=== PATIENT | female | born 1960 | race Caucasian/White ===

== ENCOUNTER 2017-12-24 21:16 | Inpatient (IN) | payer MEDICAID, OTHER ==
[2017-12-24 23:17] LABS: ADD MAN DIFF? NO
[2017-12-24 23:19] LABS: BASOPHIL # 0.1 10^3/ul (0.0-0.1); BASOPHILS % 0.8 % (0.0-2.0); EOSINOPHILS # 0.3 10^3/ul (0.0-0.5); EOSINOPHILS % 2.5 % (0.0-7.0); HEMATOCRIT 42.5 % (37.0-47.0); HEMOGLOBIN 13.9 g/dl (12.0-16.0); LYMPHOCYTES # 4.6 10^3/ul (0.8-2.9); MEAN CORPUSCULAR HEMOGLOBIN 29.6 pg (29.0-33.0); MEAN CORPUSCULAR HGB CONC 32.7 g/dl (32.0-37.0); MEAN CORPUSCULAR VOLUME 90.4 fl (82.0-101.0); MEAN PLATELET VOLUME 9.2 fl (7.4-10.4); MONOCYTE # 0.9 10^3/ul (0.3-0.9); MONOCYTES % 7.1 % (0.0-11.0); NEUTROPHIL # 6.4 10^3/ul (1.6-7.5); NEUTROPHILS % 52.3 % (39.0-77.0); PLATELET COUNT 438 10^3/UL (140-415); RED CELL DISTRIBUTION WIDTH 14.2 % (11.5-14.5)
[2017-12-24 23:19] LABS: WHITE BLOOD COUNT 12.3 10^3/ul (4.8-10.8)
[2017-12-24] MEDS: ASPIRIN 325 MG TAB PO (23:29)
[2017-12-24] MEDS: METHOCARBAMOL 750 MG TAB PO (23:29)
[2017-12-24 23:42] LABS: ANION GAP 17 (8-16); BLOOD UREA NITROGEN 18 mg/dl (7-20); CALCIUM 10.1 mg/dl (8.4-10.2); CARBON DIOXIDE 27 mmol/L (21-31); CHLORIDE 102 mmol/L (97-110); CREATININE 0.84 mg/dl (0.44-1.00); GLUCOSE 88 mg/dl (70-220); POTASSIUM 3.5 mmol/L (3.5-5.1); SODIUM 142 mmol/L (135-144)
[2017-12-24 23:54] LABS: B-TYPE NATRIURETIC PEPTIDE 25 PG/ML (0-125)
[2017-12-24 23:59] LABS: TROPONIN-I < 0.012 ng/ml (0.00-0.12)
[2017-12-25] MEDS: ONDANSETRON 4 MG INJ IV ×2 (00:23→06:37)
[2017-12-25] MEDS: SOD CHLORIDE 0.9% 1,000 ML IV ×2 (00:23→10:00)
[2017-12-25] MEDS: morphine 4 MG/ML VIAL IV (00:25)
[2017-12-25 01:59] LABS: ADD UMIC YES; UR ASCORBIC ACID NEGATIVE (NEGATIVE); UR BILIRUBIN (Dip) NEGATIVE (NEGATIVE); UR BLOOD (Dip) NEGATIVE (NEGATIVE); UR CLARITY CLEAR (CLEAR); UR COLOR STRAW (YELLOW); UR GLUCOSE (Dip) NEGATIVE (NEGATIVE); UR KETONES (Dip) NEGATIVE (NEGATIVE); UR LEUKOCYTE ESTERASE (Dip) TRACE Leu/ul (NEGATIVE); UR NITRITE (Dip) NEGATIVE (NEGATIVE); UR RBC 0 /HPF (0-5); UR SPECIFIC GRAVITY (Dip) 1.006 (1.003-1.030); UR TOTAL PROTEIN (Dip) NEGATIVE (NEGATIVE); UR UROBILINOGEN (Dip) NEGATIVE (NEGATIVE); UR WBC 4 /HPF (0-5)
[2017-12-25] MEDS: DIAZEPAM 5 MG/ML SYG IV (02:25)
[2017-12-25] MEDS: SODIUM CHLORIDE 0.9% 1L BAG IV* (04:19)
[2017-12-25] MEDS: CEFEPIME 2GM/50 ML (PMX) 50 ML IVPB (04:20)
[2017-12-25] MEDS ORDERED: ALPRAZOLAM 1 MG TAB PO ×2 (05:00→21:00)
[2017-12-25] MEDS: SOD CHLORIDE 0.9% 500 ML IV (05:00)
[2017-12-25] MEDS ORDERED: ACETAMINOPHEN 325 MG TAB PO (05:00)
[2017-12-25] MEDS ORDERED: NACL 0.9% 3 ML SYG IV (05:00)
[2017-12-25 05:41] LABS: LACTIC ACID 1.1 mmol/L (0.5-2.0)
[2017-12-25 06:18] LABS: LACTIC ACID 1.1 mmol/L (0.5-2.0)
[2017-12-25] MEDS: morphine 2 MG INJ IV ×2 (06:37→10:49)
[2017-12-25 06:38] LABS: CK-MB 0.39 ng/ml (0.0-2.4)
[2017-12-25 06:48] LABS: TROPONIN-I < 0.012 ng/ml (0.00-0.12)
[2017-12-25 06:57] LABS: CREATINE KINASE 41 IU/L (23-200)
[2017-12-25] MEDS: ALBUMIN HUMAN 5% 250 ML IV (07:00)
[2017-12-25] MEDS ORDERED: INSULIN REGULAR HUMAN SQ (08:00)
[2017-12-25] MEDS ORDERED: [UNRECOGNIZED DRUG - OTHER] SQ (08:00)
[2017-12-25 08:41] LABS: LACTIC ACID 1.1 mmol/L (0.5-2.0)
[2017-12-25] MEDS: ASPIRIN (EC) 81 MG TAB PO (09:00)
[2017-12-25] MEDS: GABAPENTIN 300 MG CAP PO (10:50)
[2017-12-25 11:28] LABS: HEMOGLOBIN A1C 11.7 % (0-5.9)
[2017-12-25] MEDS ORDERED: GLUCOSE GEL 15 GRAM TUBE PO ×2 (11:30)
[2017-12-25] MEDS ORDERED: GLUCAGON 1 MG INJ IM (11:30)
[2017-12-25] MEDS ORDERED: INSULIN GLARGINE [LANtus] 3 ML PEN SC ×2 (11:30→12:00)
[2017-12-25] MEDS ORDERED: GLUCOSE GEL 15 GRAM TUBE BUCCAL (11:30)
[2017-12-25] MEDS ORDERED: DEXTROSE 50% 50 ML SYRINGE IV ×2 (11:30)
[2017-12-25] MEDS ORDERED: INSULIN ASPART [NOVOLOG] 3 ML PEN SC ×2 (12:00)
[2017-12-25 12:07] LABS: CREATINE KINASE 36 IU/L (23-200)
[2017-12-25 12:19] LABS: CK INDEX 1.7; CK-MB 0.61 ng/ml (0.0-2.4)
[2017-12-25 12:21] LABS: TROPONIN-I < 0.012 ng/ml (0.00-0.12)
[2017-12-25] MEDS ORDERED: DIPHENHYDRAMINE 25 MG CAP PO (12:30)
[2017-12-25] MEDS ORDERED: ALBUTEROL/IPRATROPIUM (NEB) 3 ML AMP HHN ×2 (12:30→13:00)
[2017-12-25] MEDS ORDERED: NITROGLYCERIN (SL) 0.4 MG TAB SL (13:00)
[2017-12-25] MEDS ORDERED: FUROSEMIDE 40 MG INJ IV (13:30)
[2017-12-25] MEDS ORDERED: ENOXAPARIN 40 MG/0.4 ML SYG SC (13:30)
[2017-12-25] MEDS ORDERED: LEVOFLOXACIN 500MG/D5W (PMX) 100 ML IVPB (13:30)
[2017-12-25] MEDS ORDERED: NICOTINE (21 MG/24 HR) PATCH TRANSDERM (14:30)
[2017-12-25] MEDS ORDERED: morphine 2 MG INJ IV (15:00)
[2017-12-25] MEDS ORDERED: [UNRECOGNIZED DRUG - OTHER] SQ (21:00)
[2017-12-25] MEDS ORDERED: INSULIN REGULAR SQ (21:00)
[2017-12-25] MEDS ORDERED: ATORVASTATIN 40 MG TAB PO (21:00)
[2017-12-25] MEDS ORDERED: traZODone 100 MG TAB PO (21:00)
[2017-12-26] MEDS ORDERED: ACCU-CHEK XX (02:00)
[2017-12-26] MEDS ORDERED: HYDROCHLOROTHIAZIDE 25 MG TAB PO (09:00)
[2017-12-26] MEDS ORDERED: NICOTINE (21 MG/24 HR) PATCH TRANSDERM (09:00)
[2017-12-26] MEDS ORDERED: FUROSEMIDE 40 MG INJ IV (09:00)
[2017-12-26] MEDS ORDERED: ISOSORBIDE MONONITRATE 20 MG TAB PO (09:00)
== END 2017-12-25 13:24 | disposition left against medical advice (07) | DRG 313 ==
LOC: E/R 21:16 → MS4 12-25 04:11
DX: R07.9 Chest pain, unspecified (principal); E11.649 Type 2 diabetes mellitus with hypoglycemia without coma; I11.0 Hypertensive heart disease with heart failure; I50.9 Heart failure, unspecified; N39.0 Urinary tract infection, site not specified; Z68.41 Body mass index [BMI] 40.0-44.9, adult; G89.29 Other chronic pain; M54.9 Dorsalgia, unspecified; D72.829 Elevated white blood cell count, unspecified; J44.9 Chronic obstructive pulmonary disease, unspecified; E78.5 Hyperlipidemia, unspecified; F17.200 Nicotine dependence, unspecified, uncomplicated; E66.01 Morbid (severe) obesity due to excess calories; D72.819 Decreased white blood cell count, unspecified; Z79.82 Long term (current) use of aspirin; Z79.4 Long term (current) use of insulin
CPT/HCPCS: 36415; 71045; 80048; 81001; 82550; 82553; 82962; 83036; 83605; 83880; 84484; 85025; 87040; 87086; 93005; 93306; 96374; 96375; 96376; 99291-25

== ENCOUNTER 2018-02-14 21:20 | Emergency (ER) | payer OTHER, MEDICAID ==
[2018-02-14] MEDS: METHYLPREDNISOLONE 125 MG INJ IV (22:06)
[2018-02-14] MEDS: ALBUTEROL 0.083% (NEB) 2.5 MG/3 ML AMP HHN (22:09)
[2018-02-14] MEDS: IPRATROPIUM (NEB) 0.5 MG/2.5 ML AMP HHN (22:09)
[2018-02-14] MEDS: ALPRAZOLAM 1 MG TAB PO (22:16)
[2018-02-14] MEDS: CEFTRIAXONE 1 GM/50 ML (PMX) 50 ML IVPB (22:24)
[2018-02-14 22:26] LABS: ADD MAN DIFF? NO
[2018-02-14 22:30] LABS: BASOPHIL # 0.1 10^3/ul (0.0-0.1); BASOPHILS % 0.7 % (0.0-2.0); EOSINOPHILS # 0.4 10^3/ul (0.0-0.5); EOSINOPHILS % 3.4 % (0.0-7.0); HEMOGLOBIN 13.1 g/dl (12.0-16.0); LYMPHOCYTES # 3.8 10^3/ul (0.8-2.9); LYMPHOCYTES % 32.3 % (15.0-51.0); MEAN CORPUSCULAR VOLUME 90.7 fl (82.0-101.0); MEAN PLATELET VOLUME 9.7 fl (7.4-10.4); MONOCYTE # 0.7 10^3/ul (0.3-0.9); MONOCYTES % 6.3 % (0.0-11.0); NEUTROPHIL # 6.7 10^3/ul (1.6-7.5); PLATELET COUNT 415 10^3/UL (140-415); RED BLOOD COUNT 4.52 10^6/ul (4.20-5.40); RED CELL DISTRIBUTION WIDTH 13.9 % (11.5-14.5)
[2018-02-14 22:30] LABS: WHITE BLOOD COUNT 11.8 10^3/ul (4.8-10.8)
[2018-02-14 22:49] LABS: INR 0.96; PARTIAL THROMBOPLASTIN TIME 27.9 Sec (25.0-35.0); PROTIME 12.9 Sec (11.9-14.9)
[2018-02-14 22:52] LABS: ALANINE AMINOTRANSFERASE 23 IU/L (13-69); ALBUMIN/GLOBULIN RATIO 1.37; ALKALINE PHOSPHATASE 74 IU/L (42-121); ANION GAP 16 (8-16); ASPARTATE AMINO TRANSFERASE 16 IU/L (15-46); BILIRUBIN,INDIRECT 0.2 mg/dl (0-1.1); BILIRUBIN,TOTAL 0.2 mg/dl (0.2-1.3); BLOOD UREA NITROGEN 16 mg/dl (7-20); CALCIUM 9.1 mg/dl (8.4-10.2); CARBON DIOXIDE 27 mmol/L (21-31); CHLORIDE 102 mmol/L (97-110); CREATININE 0.82 mg/dl (0.44-1.00); GLUCOSE 200 mg/dl (70-220); POTASSIUM 3.9 mmol/L (3.5-5.1); SODIUM 141 mmol/L (135-144); TOTAL PROTEIN 6.9 g/dl (6.1-8.1)
[2018-02-14 23:03] LABS: B-TYPE NATRIURETIC PEPTIDE 51 PG/ML (0-125)
[2018-02-14 23:15] LABS: TROPONIN-I < 0.012 ng/ml (0.00-0.12)
== END 2018-02-15 01:25 | disposition home or self-care (01) ==
LOC: FTE 02-15 01:25
DX: J44.1 Chronic obstructive pulmonary disease with (acute) exacerbation (principal); J18.9 Pneumonia, unspecified organism; I10 Essential (primary) hypertension; I50.9 Heart failure, unspecified; E11.9 Type 2 diabetes mellitus without complications; E66.9 Obesity, unspecified; F17.210 Nicotine dependence, cigarettes, uncomplicated; Z79.4 Long term (current) use of insulin; Z79.82 Long term (current) use of aspirin
CPT/HCPCS: 36415; 71046; 80053; 83880; 84484; 85025; 85610; 85730; 93005; 94664; 96374; 96375; 99285-25

== ENCOUNTER 2018-02-22 20:43 | Emergency (ER) | payer OTHER ==
[2018-02-22 21:47] LABS: MODE ROOM AIR; MetHgb Venous 0.3 %; Sample Type Blood venous; Site VENOUS LINE; Venous COHb 4.8 %; Venous Fraction OxyHgb 86.6 %; Venous Oxygen Sat 91.3 mmHG (55.0-75.0); Venous Total Hemglobin 14.3 g/dl
[2018-02-22] MEDS: IPRATROPIUM (NEB) 0.5 MG/2.5 ML AMP INH (21:53)
[2018-02-22] MEDS: ALBUTEROL 0.083% (NEB) 2.5 MG/3 ML AMP INH (21:53)
[2018-02-22 22:12] LABS: ADD MAN DIFF? NO
[2018-02-22 22:14] LABS: WHITE BLOOD COUNT 14.6 10^3/ul (4.8-10.8)
[2018-02-22 22:14] LABS: ABNORMAL IP MESSAGE 1; BASOPHIL # 0.1 10^3/ul (0.0-0.1); BASOPHILS % 0.4 % (0.0-2.0); EOSINOPHILS # 0.4 10^3/ul (0.0-0.5); EOSINOPHILS % 2.9 % (0.0-7.0); HEMATOCRIT 40.8 % (37.0-47.0); HEMOGLOBIN 13.3 g/dl (12.0-16.0); LYMPHOCYTES % 40.8 % (15.0-51.0); MEAN CORPUSCULAR HGB CONC 32.6 g/dl (32.0-37.0); MEAN CORPUSCULAR VOLUME 88.9 fl (82.0-101.0); MEAN PLATELET VOLUME 9.7 fl (7.4-10.4); MONOCYTE # 0.9 10^3/ul (0.3-0.9); MONOCYTES % 6.3 % (0.0-11.0); NEUTROPHIL # 7.2 10^3/ul (1.6-7.5); NEUTROPHILS % 49.2 % (39.0-77.0); PLATELET COUNT 423 10^3/UL (140-415); RED BLOOD COUNT 4.59 10^6/ul (4.20-5.40); RED CELL DISTRIBUTION WIDTH 13.7 % (11.5-14.5)
[2018-02-22 22:27] LABS: POSITIVE DIFF @See below
[2018-02-22 22:36] LABS: ANION GAP 13 (8-16); BLOOD UREA NITROGEN 23 mg/dl (7-20); CALCIUM 9.3 mg/dl (8.4-10.2); CARBON DIOXIDE 30 mmol/L (21-31); CHLORIDE 101 mmol/L (97-110); CREATININE 0.95 mg/dl (0.44-1.00); GLUCOSE 199 mg/dl (70-220); POTASSIUM 3.3 mmol/L (3.5-5.1); SODIUM 141 mmol/L (135-144)
[2018-02-22] MEDS: LORAZEPAM 1 MG TAB PO (22:36)
[2018-02-22 22:47] LABS: B-TYPE NATRIURETIC PEPTIDE 62 PG/ML (0-125)
[2018-02-22 22:49] LABS: TROPONIN-I < 0.012 ng/ml (0.000-0.120)
== END 2018-02-22 23:45 | disposition home or self-care (01) ==
LOC: E/R 20:43
DX: J98.01 Acute bronchospasm (principal); R53.1 Weakness; J41.0 Simple chronic bronchitis; I50.9 Heart failure, unspecified; I10 Essential (primary) hypertension; E11.9 Type 2 diabetes mellitus without complications; E66.9 Obesity, unspecified; Z87.891 Personal history of nicotine dependence; Z79.82 Long term (current) use of aspirin; Z79.4 Long term (current) use of insulin
CPT/HCPCS: 36415; 71045; 80048; 82803; 82962; 83880; 84484; 85025; 85378; 93005; 94644; 99285-25

== ENCOUNTER 2018-03-04 21:25 | Emergency (ER) | payer OTHER ==
[2018-03-05 02:27] LABS: ADD MAN DIFF? NO
[2018-03-05] MEDS: ONDANSETRON 4 MG INJ IV (02:29)
[2018-03-05] MEDS: ASPIRIN 325 MG TAB PO (02:29)
[2018-03-05] MEDS: LIDOCAINE/MYLANTA 40 ML BTL PO (02:29)
[2018-03-05 02:30] LABS: WHITE BLOOD COUNT 12.7 10^3/ul (4.8-10.8)
[2018-03-05 02:30] LABS: BASOPHIL # 0.1 10^3/ul (0.0-0.1); BASOPHILS % 0.7 % (0.0-2.0); EOSINOPHILS # 0.4 10^3/ul (0.0-0.5); EOSINOPHILS % 2.9 % (0.0-7.0); HEMATOCRIT 44.9 % (37.0-47.0); HEMOGLOBIN 14.7 g/dl (12.0-16.0); LYMPHOCYTES # 4.3 10^3/ul (0.8-2.9); LYMPHOCYTES % 34.1 % (15.0-51.0); MEAN CORPUSCULAR HEMOGLOBIN 28.9 pg (29.0-33.0); MEAN CORPUSCULAR HGB CONC 32.7 g/dl (32.0-37.0); MEAN CORPUSCULAR VOLUME 88.4 fl (82.0-101.0); MEAN PLATELET VOLUME 10.2 fl (7.4-10.4); MONOCYTE # 0.8 10^3/ul (0.3-0.9); NEUTROPHIL # 7.1 10^3/ul (1.6-7.5); NEUTROPHILS % 56.1 % (39.0-77.0); PLATELET COUNT 365 10^3/UL (140-415); RED BLOOD COUNT 5.08 10^6/ul (4.20-5.40); RED CELL DISTRIBUTION WIDTH 13.5 % (11.5-14.5)
[2018-03-05 02:55] LABS: ANION GAP 15 (8-16); BLOOD UREA NITROGEN 22 mg/dl (7-20); CALCIUM 9.9 mg/dl (8.4-10.2); CARBON DIOXIDE 31 mmol/L (21-31); CHLORIDE 100 mmol/L (97-110); CREATININE 0.85 mg/dl (0.44-1.00); GLUCOSE 101 mg/dl (70-220); SODIUM 143 mmol/L (135-144)
[2018-03-05 03:14] LABS: B-TYPE NATRIURETIC PEPTIDE 28 PG/ML (0-125); TROPONIN-I < 0.012 ng/ml (0.000-0.120)
[2018-03-05] MEDS: KETOROLAC 30 MG INJ IV (03:35)
[2018-03-05] MEDS: POTASSIUM CHLORIDE (SR) 20 MEQ TAB PO (03:36)
[2018-03-05] MEDS: SOD CHLORIDE 0.9% 1,000 ML IV (03:36)
== END 2018-03-05 06:15 | disposition home or self-care (01) ==
LOC: E/R 21:25
DX: E87.6 Hypokalemia (principal); E66.01 Morbid (severe) obesity due to excess calories; D72.829 Elevated white blood cell count, unspecified; J44.9 Chronic obstructive pulmonary disease, unspecified; I10 Essential (primary) hypertension; I50.9 Heart failure, unspecified; E11.9 Type 2 diabetes mellitus without complications; Z79.4 Long term (current) use of insulin; Z79.82 Long term (current) use of aspirin; Z87.891 Personal history of nicotine dependence
CPT/HCPCS: 36415; 71045; 80048; 83880; 84484; 85025; 93005; 96374; 96375; 99285-25

== ENCOUNTER 2018-03-07 22:54 | Emergency (ER) | payer OTHER ==
[2018-03-07] MEDS ORDERED: LACTATED RINGER'S 1,000 ML IV (23:05)
[2018-03-07 23:17] LABS: MODE ROOM AIR; MetHgb Venous 0.1 %; Sample Type Blood venous; Site VENOUS LINE; Venous COHb 3.6 %; Venous Fraction OxyHgb 77.2 %; Venous Oxygen Sat 80.2 mmHG (55.0-75.0); Venous Total Hemglobin 14.3 g/dl
[2018-03-07] MEDS ORDERED: morphine (ER) 30 MG TAB PO (23:30)
[2018-03-07] MEDS: HYDROCODONE/APAP (10/325) TAB PO (23:34)
[2018-03-07] MEDS: SOD CHLORIDE 0.9% 1,000 ML IV (23:34)
[2018-03-07 23:38] LABS: ADD MAN DIFF? NO
[2018-03-07 23:41] LABS: BASOPHIL # 0.1 10^3/ul (0.0-0.1); BASOPHILS % 0.7 % (0.0-2.0); EOSINOPHILS # 0.3 10^3/ul (0.0-0.5); HEMATOCRIT 40.8 % (37.0-47.0); HEMOGLOBIN 13.1 g/dl (12.0-16.0); LYMPHOCYTES # 3.1 10^3/ul (0.8-2.9); LYMPHOCYTES % 36.5 % (15.0-51.0); MEAN CORPUSCULAR HEMOGLOBIN 29.1 pg (29.0-33.0); MEAN CORPUSCULAR HGB CONC 32.1 g/dl (32.0-37.0); MEAN CORPUSCULAR VOLUME 90.7 fl (82.0-101.0); MEAN PLATELET VOLUME 10.5 fl (7.4-10.4); MONOCYTE # 0.7 10^3/ul (0.3-0.9); MONOCYTES % 8.3 % (0.0-11.0); NEUTROPHIL # 4.3 10^3/ul (1.6-7.5); NEUTROPHILS % 50.3 % (39.0-77.0); PLATELET COUNT 303 10^3/UL (140-415); RED CELL DISTRIBUTION WIDTH 13.9 % (11.5-14.5)
[2018-03-07 23:41] LABS: WHITE BLOOD COUNT 8.5 10^3/ul (4.8-10.8)
[2018-03-07 23:50] LABS: ADD UMIC YES; UR ASCORBIC ACID NEGATIVE (NEGATIVE); UR BACTERIA FEW /HPF (NONE SEEN); UR BILIRUBIN (Dip) NEGATIVE (NEGATIVE); UR BLOOD (Dip) NEGATIVE (NEGATIVE); UR CLARITY CLEAR (CLEAR); UR COLOR STRAW (YELLOW); UR GLUCOSE (Dip) 3+ mg/dL (NEGATIVE); UR KETONES (Dip) NEGATIVE (NEGATIVE); UR LEUKOCYTE ESTERASE (Dip) TRACE Leu/ul (NEGATIVE); UR NITRITE (Dip) NEGATIVE (NEGATIVE); UR RBC 1 /HPF (0-5); UR SPECIFIC GRAVITY (Dip) 1.024 (1.003-1.030); UR TOTAL PROTEIN (Dip) NEGATIVE (NEGATIVE); UR UROBILINOGEN (Dip) NEGATIVE (NEGATIVE); UR WBC 3 /HPF (0-5)
[2018-03-08] LABS: ANION GAP 14 (8-16); BLOOD UREA NITROGEN 13 mg/dl (7-20); CALCIUM 9.1 mg/dl (8.4-10.2); CARBON DIOXIDE 27 mmol/L (21-31); CHLORIDE 102 mmol/L (97-110); CREATININE 0.71 mg/dl (0.44-1.00); POTASSIUM 3.9 mmol/L (3.5-5.1); SODIUM 139 mmol/L (135-144)
[2018-03-08 00:02] LABS: GLUCOSE 587 mg/dl (70-220)
[2018-03-08 00:12] LABS: TROPONIN-I < 0.012 ng/ml (0.000-0.120)
[2018-03-08 01:20] LABS: LACTIC ACID 3.1 mmol/L (0.5-2.0)
== END 2018-03-08 02:15 | disposition home or self-care (01) ==
LOC: E/R 03-08 02:15
DX: E11.65 Type 2 diabetes mellitus with hyperglycemia (principal); G89.29 Other chronic pain; M79.604 Pain in right leg; M79.605 Pain in left leg; J44.9 Chronic obstructive pulmonary disease, unspecified; I10 Essential (primary) hypertension; I50.9 Heart failure, unspecified; E66.9 Obesity, unspecified; Z68.30 Body mass index [BMI] 30.0-30.9, adult; Z87.891 Personal history of nicotine dependence; Z79.4 Long term (current) use of insulin; Z79.82 Long term (current) use of aspirin
CPT/HCPCS: 36415; 80048; 81001; 82803; 82962; 83605; 84484; 85025; 99284-25

== ENCOUNTER 2018-04-05 18:22 | Emergency (ER) | payer OTHER ==
[2018-04-05] MEDS: LACTATED RINGER'S 1,000 ML IV (20:02)
[2018-04-05] MEDS: ONDANSETRON 4 MG INJ IV (20:02)
[2018-04-05] MEDS: morphine 4 MG/ML VIAL IV (20:02)
[2018-04-05 20:08] LABS: ADD UMIC NO; UR ASCORBIC ACID NEGATIVE (NEGATIVE); UR BILIRUBIN (Dip) NEGATIVE (NEGATIVE); UR BLOOD (Dip) NEGATIVE (NEGATIVE); UR CLARITY CLEAR (CLEAR); UR COLOR YELLOW (YELLOW); UR GLUCOSE (Dip) 1+ mg/dL (NEGATIVE); UR KETONES (Dip) NEGATIVE (NEGATIVE); UR LEUKOCYTE ESTERASE (Dip) NEGATIVE Leu/ul (NEGATIVE); UR NITRITE (Dip) NEGATIVE (NEGATIVE); UR SPECIFIC GRAVITY (Dip) 1.017 (1.003-1.030); UR TOTAL PROTEIN (Dip) NEGATIVE (NEGATIVE); UR UROBILINOGEN (Dip) NEGATIVE (NEGATIVE)
[2018-04-05 20:13] LABS: HEMATOCRIT 43.7 % (37.0-47.0); HEMOGLOBIN 14.2 g/dl (12.0-16.0); MEAN CORPUSCULAR HEMOGLOBIN 29.1 pg (29.0-33.0); MEAN CORPUSCULAR HGB CONC 32.5 g/dl (32.0-37.0); MEAN CORPUSCULAR VOLUME 89.5 fl (82.0-101.0); MEAN PLATELET VOLUME 9.9 fl (7.4-10.4); PLATELET COUNT 414 10^3/UL (140-415); RED BLOOD COUNT 4.88 10^6/ul (4.20-5.40); RED CELL DISTRIBUTION WIDTH 14.9 % (11.5-14.5)
[2018-04-05 20:13] LABS: WHITE BLOOD COUNT 13.3 10^3/ul (4.8-10.8)
[2018-04-05 20:18] LABS: ADD MAN DIFF? YES; POSITIVE DIFF @See below
[2018-04-05 20:20] LABS: ALANINE AMINOTRANSFERASE 32 IU/L (13-69); ALBUMIN 4.2 g/dl (3.3-4.9); ALKALINE PHOSPHATASE 98 IU/L (42-121); ANION GAP 18 (8-16); ASPARTATE AMINO TRANSFERASE 15 IU/L (15-46); BILIRUBIN,INDIRECT 0.1 mg/dl (0-1.1); BILIRUBIN,TOTAL 0.1 mg/dl (0.2-1.3); BLOOD UREA NITROGEN 13 mg/dl (7-20); CALCIUM 9.7 mg/dl (8.4-10.2); CARBON DIOXIDE 28 mmol/L (21-31); CHLORIDE 97 mmol/L (97-110); CREATININE 0.76 mg/dl (0.44-1.00); GLUCOSE 230 mg/dl (70-220); POTASSIUM 4.2 mmol/L (3.5-5.1); SODIUM 139 mmol/L (135-144)
[2018-04-05 20:29] LABS: B-TYPE NATRIURETIC PEPTIDE 61 PG/ML (0-125)
[2018-04-05 20:33] LABS: TROPONIN-I < 0.012 ng/ml (0.000-0.120)
[2018-04-05] MEDS: KETOROLAC 30 MG INJ IV (21:31)
[2018-04-05] MEDS: OXYCODONE/ACETAMINOPHEN (5/325) TAB PO (23:37)
== END 2018-04-05 23:40 | disposition home or self-care (01) ==
LOC: E/R 18:22
DX: K80.50 Calculus of bile duct without cholangitis or cholecystitis without obstruction (principal); E11.9 Type 2 diabetes mellitus without complications; D72.829 Elevated white blood cell count, unspecified; J44.9 Chronic obstructive pulmonary disease, unspecified; I50.9 Heart failure, unspecified; E66.9 Obesity, unspecified; Z68.41 Body mass index [BMI] 40.0-44.9, adult; Z87.891 Personal history of nicotine dependence; Z79.4 Long term (current) use of insulin; Z79.82 Long term (current) use of aspirin
CPT/HCPCS: 71045; 74019; 76705; 80053; 81003; 83880; 84484; 85025; 93005; 96374; 96375; 99285-25

== ENCOUNTER 2018-04-16 12:16 | Observation (INO) | payer OTHER ==
[2018-04-16] MEDS: traZODone 100 MG TAB PO (02:13)
[2018-04-16] MEDS ORDERED: NITROGLYCERIN (SL) 0.4 MG TAB SL (14:30)
[2018-04-16 14:57] LABS: WHITE BLOOD COUNT 15.1 10^3/ul (4.8-10.8)
[2018-04-16 14:57] LABS: ADD MAN DIFF? NO; BASOPHIL # 0.1 10^3/ul (0.0-0.1); BASOPHILS % 0.7 % (0.0-2.0); EOSINOPHILS # 0.5 10^3/ul (0.0-0.5); EOSINOPHILS % 3.1 % (0.0-7.0); HEMATOCRIT 45.2 % (37.0-47.0); HEMOGLOBIN 14.3 g/dl (12.0-16.0); LYMPHOCYTES # 4.1 10^3/ul (0.8-2.9); MEAN CORPUSCULAR HEMOGLOBIN 28.7 pg (29.0-33.0); MEAN CORPUSCULAR HGB CONC 31.6 g/dl (32.0-37.0); MEAN CORPUSCULAR VOLUME 90.8 fl (82.0-101.0); MEAN PLATELET VOLUME 10.1 fl (7.4-10.4); MONOCYTES % 6.3 % (0.0-11.0); NEUTROPHIL # 9.4 10^3/ul (1.6-7.5); NEUTROPHILS % 62.6 % (39.0-77.0); PLATELET COUNT 334 10^3/UL (140-415); RED BLOOD COUNT 4.98 10^6/ul (4.20-5.40)
[2018-04-16] MEDS: NITROGLYCERIN 2% 1 GM OINT PKT TD (15:01)
[2018-04-16] MEDS: ASPIRIN 81 MG TAB PO (15:02)
[2018-04-16] MEDS: morphine 4 MG/ML VIAL IV (15:04)
[2018-04-16] MEDS: ONDANSETRON 4 MG INJ IV (15:04)
[2018-04-16 15:24] LABS: ANION GAP 16 (8-16); BLOOD UREA NITROGEN 14 mg/dl (7-20); CALCIUM 9.6 mg/dl (8.4-10.2); CARBON DIOXIDE 26 mmol/L (21-31); CHLORIDE 100 mmol/L (97-110); CREATININE 0.76 mg/dl (0.44-1.00); GLUCOSE 302 mg/dl (70-220); POTASSIUM 4.1 mmol/L (3.5-5.1); SODIUM 138 mmol/L (135-144)
[2018-04-16 15:36] LABS: TROPONIN-I < 0.010 ng/ml (0.000-0.120)
[2018-04-16 17:39] LABS: ALANINE AMINOTRANSFERASE 36 IU/L (13-69); ALKALINE PHOSPHATASE 101 IU/L (42-121); ASPARTATE AMINO TRANSFERASE 34 IU/L (15-46); BILIRUBIN,INDIRECT 0.4 mg/dl (0-1.1); BILIRUBIN,TOTAL 0.4 mg/dl (0.2-1.3); LIPASE 35 U/L (23-300); TOTAL PROTEIN 6.5 g/dl (6.1-8.1)
[2018-04-16] MEDS: KETOROLAC 30 MG INJ IV (17:59)
[2018-04-16] MEDS: FUROSEMIDE 40 MG INJ IV (17:59)
[2018-04-16] MEDS ORDERED: ACETAMINOPHEN 325 MG TAB PO ×2 (18:00)
[2018-04-16] MEDS ORDERED: ONDANSETRON 4 MG INJ IV (18:00)
[2018-04-16] MEDS ORDERED: NACL 0.9% 3 ML SYG IV (18:00)
[2018-04-16] MEDS ORDERED: ONDANSETRON 4 MG TAB PO (18:00)
[2018-04-16] MEDS ORDERED: GLUCAGON 1 MG INJ IM (19:30)
[2018-04-16] MEDS ORDERED: DEXTROSE 50% 50 ML SYRINGE IV ×2 (19:30)
[2018-04-16] MEDS ORDERED: GLUCOSE GEL 15 GRAM TUBE BUCCAL (19:30)
[2018-04-16] MEDS ORDERED: GLUCOSE GEL 15 GRAM TUBE PO ×2 (19:30)
[2018-04-16] MEDS ORDERED: ALBUTEROL 0.083% (NEB) 2.5 MG/3 ML AMP NEB (20:00)
[2018-04-16] MEDS: FAMOTIDINE 20 MG TAB PO (21:02)
[2018-04-16] MEDS: HYDROCODONE/APAP (10/325) TAB PO (21:02)
[2018-04-16] MEDS: ALPRAZOLAM 1 MG TAB PO (21:02)
[2018-04-16 21:45] LABS: CREATINE KINASE 29 IU/L (23-200)
[2018-04-16 21:56] LABS: CK INDEX 1.6; CK-MB 0.45 ng/ml (0.0-2.4); TROPONIN-I < 0.010 ng/ml (0.000-0.120)
[2018-04-16] MEDS: morphine (ER) 30 MG TAB PO (23:00)
[2018-04-16] MEDS: ARFORMOTEROL TARTRATE 15MCG/2 ML AMP INH (23:00)
[2018-04-16] MEDS: BUDESONIDE (NEB) 0.5MG/2ML AMP INH (23:00)
[2018-04-17] MEDS: ATORVASTATIN 40 MG TAB PO (00:43)
[2018-04-17] MEDS: GABAPENTIN 300 MG CAP PO ×3 (00:44→12:04)
[2018-04-17] MEDS: ACCU-CHEK XX (02:00)
[2018-04-17] MEDS: INSULIN ASPART [NOVOLOG] 3 ML PEN SC ×5 (02:06→12:00)
[2018-04-17] MEDS: INSULIN GLARGINE [LANTus] (100 UNITS/ML) SYG SC (02:09)
[2018-04-17 02:56] LABS: CREATINE KINASE 25 IU/L (23-200)
[2018-04-17 03:09] LABS: CK INDEX 1.6; CK-MB 0.39 ng/ml (0.0-2.4); TROPONIN-I < 0.010 ng/ml (0.000-0.120)
[2018-04-17 07:36] LABS: ADD MAN DIFF? NO
[2018-04-17 07:41] LABS: BASOPHIL # 0.1 10^3/ul (0.0-0.1); BASOPHILS % 0.7 % (0.0-2.0); EOSINOPHILS # 0.5 10^3/ul (0.0-0.5); EOSINOPHILS % 5.6 % (0.0-7.0); HEMATOCRIT 43.1 % (37.0-47.0); HEMOGLOBIN 13.5 g/dl (12.0-16.0); LYMPHOCYTES # 2.9 10^3/ul (0.8-2.9); MEAN CORPUSCULAR HEMOGLOBIN 28.4 pg (29.0-33.0); MEAN CORPUSCULAR HGB CONC 31.3 g/dl (32.0-37.0); MEAN CORPUSCULAR VOLUME 90.7 fl (82.0-101.0); MEAN PLATELET VOLUME 10.1 fl (7.4-10.4); MONOCYTE # 0.6 10^3/ul (0.3-0.9); MONOCYTES % 7.5 % (0.0-11.0); NEUTROPHIL # 4.4 10^3/ul (1.6-7.5); PLATELET COUNT 304 10^3/UL (140-415); RED BLOOD COUNT 4.75 10^6/ul (4.20-5.40); RED CELL DISTRIBUTION WIDTH 14.9 % (11.5-14.5)
[2018-04-17 07:41] LABS: WHITE BLOOD COUNT 8.4 10^3/ul (4.8-10.8)
[2018-04-17] MEDS: BUDESONIDE (NEB) 0.5MG/2ML AMP INH (08:00)
[2018-04-17 08:27] LABS: ANION GAP 13 (8-16); BLOOD UREA NITROGEN 21 mg/dl (7-20); CALCIUM 9.1 mg/dl (8.4-10.2); CARBON DIOXIDE 31 mmol/L (21-31); CHLORIDE 99 mmol/L (97-110); CHOL/HDL RATIO 3.2 RATIO; CHOLESTEROL 100 mg/dl (100-200); GLUCOSE 328 mg/dl (70-220); HDL CHOLESTEROL 31 mg/dl (37-92); LDL CHOLESTEROL,CALCULATED 18 mg/dl; MAGNESIUM 1.6 mg/dl (1.7-2.5); SODIUM 139 mmol/L (135-144); TRIGLYCERIDES 256 mg/dl (0-149)
[2018-04-17 08:29] LABS: HEMOGLOBIN A1C 9.6 % (0-5.9)
[2018-04-17] MEDS: morphine (ER) 30 MG TAB PO (08:39)
[2018-04-17] MEDS: ISOSORBIDE MONONITRATE(SR)60 MG TAB PO (08:39)
[2018-04-17] MEDS: FUROSEMIDE 40 MG TAB PO (08:40)
[2018-04-17] MEDS: FAMOTIDINE 20 MG TAB PO (08:40)
[2018-04-17] MEDS: ASPIRIN 81 MG TAB PO (08:40)
[2018-04-17] MEDS: HYDROCHLOROTHIAZIDE 25 MG TAB PO (08:40)
[2018-04-17] MEDS: ENOXAPARIN 40 MG/0.4 ML SYG SC (08:41)
[2018-04-17] MEDS: ARFORMOTEROL TARTRATE 15MCG/2 ML AMP INH (08:48)
[2018-04-17] MEDS: TIOTROPIUM 18 MCG CAPSULE INHA DEV INH (10:42)
[2018-04-17] MEDS: REGADENOSON 0.4 MG/5 ML SYG (13:56)
[2018-04-17] MEDS: ALPRAZOLAM 0.25 MG TAB PO (15:20)
== END 2018-04-17 17:13 | disposition home or self-care (01) ==
LOC: E/R 12:16 → MS4 17:46
PROVIDERS: Internal Medicine
DX: R07.89 Other chest pain (principal); K80.20 Calculus of gallbladder without cholecystitis without obstruction; I25.10 Atherosclerotic heart disease of native coronary artery without angina pectoris; I50.9 Heart failure, unspecified; J44.9 Chronic obstructive pulmonary disease, unspecified; Z79.82 Long term (current) use of aspirin; Z79.84 Long term (current) use of oral hypoglycemic drugs; Z79.4 Long term (current) use of insulin
CPT/HCPCS: 36415; 71045; 74176; 78452; 80048; 80061; 80076; 82550; 82553; 82962; 83036; 83690; 83735; 84484; 85025; 93005; 93017; 96374; 96375; 99285-25; G0378

== ENCOUNTER 2018-05-13 21:05 | Emergency (ER) | payer OTHER ==
[2018-05-14] MEDS: ONDANSETRON 4 MG INJ IV ×2 (00:11→02:32)
[2018-05-14] MEDS: HYDROmorphONE 1 MG/ML SYG IV ×2 (00:11→02:32)
[2018-05-14] MEDS: FUROSEMIDE 40 MG INJ IV (00:12)
[2018-05-14 00:17] LABS: WHITE BLOOD COUNT 12.3 10^3/ul (4.8-10.8)
[2018-05-14 00:17] LABS: HEMATOCRIT 45.4 % (37.0-47.0); HEMOGLOBIN 14.6 g/dl (12.0-16.0); MEAN CORPUSCULAR HEMOGLOBIN 29.2 pg (29.0-33.0); MEAN CORPUSCULAR HGB CONC 32.2 g/dl (32.0-37.0); MEAN CORPUSCULAR VOLUME 90.8 fl (82.0-101.0); MEAN PLATELET VOLUME 9.7 fl (7.4-10.4); PLATELET COUNT 338 10^3/UL (140-415); RED CELL DISTRIBUTION WIDTH 15.2 % (11.5-14.5)
[2018-05-14 00:31] LABS: ADD MAN DIFF? YES; POSITIVE DIFF @See below
[2018-05-14 00:34] LABS: ALANINE AMINOTRANSFERASE 34 IU/L (13-69); ALBUMIN 4.6 g/dl (3.3-4.9); ALBUMIN/GLOBULIN RATIO 1.64; ALKALINE PHOSPHATASE 71 IU/L (42-121); ANION GAP 16 (8-16); ASPARTATE AMINO TRANSFERASE 24 IU/L (15-46); BILIRUBIN,INDIRECT 0.1 mg/dl (0-1.1); BILIRUBIN,TOTAL 0.1 mg/dl (0.2-1.3); BLOOD UREA NITROGEN 17 mg/dl (7-20); CARBON DIOXIDE 28 mmol/L (21-31); CHLORIDE 99 mmol/L (97-110); GLUCOSE 104 mg/dl (70-220); POTASSIUM 3.5 mmol/L (3.5-5.1); SODIUM 139 mmol/L (135-144); TOTAL PROTEIN 7.4 g/dl (6.1-8.1)
[2018-05-14 00:46] LABS: B-TYPE NATRIURETIC PEPTIDE 54 PG/ML (0-125); TROPONIN-I < 0.010 ng/ml (0.000-0.120)
[2018-05-14 01:33] LABS: ANISOCYTOSIS 2+ (0-0); BAND NEUTROPHILS #M 0.1 10^3/ul (0.0-0.6); BAND NEUTROPHILS % (M) 1 % (0-4); BASOPHIL #M 0.1 10^3/ul (0.0-0.0); BASOPHILS % (M) 1 % (0-2); EOSINOPHILS % (M) 2 % (0-7); LYMPHOCYTES #M 3.6 10^3/ul (0.8-2.9); LYMPHOCYTES % (M) 30 % (15-51); MICROCYTOSIS 2+ (0-0); MONOCYTE #M 0.2 10^3/ul (0.3-0.9); MONOCYTES % (M) 2 % (0-11); PLATELET ESTIMATE NORMAL; POLYCHROMASIA 3+ (0-0); REACTIVE LYMPHOCYTES #M 0.7 10^3/ul (0.0-0.0); REACTIVE LYMPHOCYTES% (M) 6 % (0-0); SEG NEUT #M 7.1 10^3/ul (1.6-7.5); SEGMENTED NEUTROPHILS (M) % 58 % (39-77); SMUDGE%M 9 % (0-0)
== END 2018-05-14 02:37 | disposition home or self-care (01) ==
LOC: E/R 21:05
DX: R60.0 Localized edema (principal); I10 Essential (primary) hypertension; I50.9 Heart failure, unspecified; E66.9 Obesity, unspecified; F17.210 Nicotine dependence, cigarettes, uncomplicated; J44.9 Chronic obstructive pulmonary disease, unspecified; E11.9 Type 2 diabetes mellitus without complications; Z79.4 Long term (current) use of insulin; Z79.82 Long term (current) use of aspirin
CPT/HCPCS: 71045; 80053; 83880; 84484; 85025; 93005; 96374; 96375; 96376; 99285-25

== ENCOUNTER 2018-05-19 19:27 | Inpatient (IN) | payer OTHER ==
[2018-05-19 21:48] LABS: ADD MAN DIFF? NO; BASOPHIL # 0.1 10^3/ul (0.0-0.1); BASOPHILS % 0.6 % (0.0-2.0); EOSINOPHILS # 0.4 10^3/ul (0.0-0.5); EOSINOPHILS % 2.9 % (0.0-7.0); HEMATOCRIT 43.8 % (37.0-47.0); HEMOGLOBIN 14.4 g/dl (12.0-16.0); IMMATURE GRANS #M 0.04 10^3/ul; IMMATURE GRANS % (M) 0.3 %; LYMPHOCYTES # 3.7 10^3/ul (0.8-2.9); LYMPHOCYTES % 29.8 % (15.0-51.0); MEAN CORPUSCULAR HEMOGLOBIN 29.3 pg (29.0-33.0); MEAN CORPUSCULAR HGB CONC 32.9 g/dl (32.0-37.0); MEAN CORPUSCULAR VOLUME 89.2 fl (82.0-101.0); MEAN PLATELET VOLUME 9.7 fl (7.4-10.4); MONOCYTE # 0.9 10^3/ul (0.3-0.9); MONOCYTES % 7.2 % (0.0-11.0); NEUTROPHIL # 7.4 10^3/ul (1.6-7.5); NEUTROPHILS % 59.2 % (39.0-77.0); PLATELET COUNT 327 10^3/UL (140-415); RED BLOOD COUNT 4.91 10^6/ul (4.20-5.40); RED CELL DISTRIBUTION WIDTH 14.6 % (11.5-14.5)
[2018-05-19 21:48] LABS: WHITE BLOOD COUNT 12.6 10^3/ul (4.8-10.8)
[2018-05-19] MEDS: SOD CHLORIDE 0.9% 1,000 ML IV (21:50)
[2018-05-19] MEDS: ONDANSETRON 4 MG INJ IV (21:50)
[2018-05-19] MEDS: morphine 2 MG INJ IV (21:50)
[2018-05-19 22:23] LABS: ALANINE AMINOTRANSFERASE 26 IU/L (13-69); ALBUMIN 3.9 g/dl (3.3-4.9); ALBUMIN/GLOBULIN RATIO 1.44; ALKALINE PHOSPHATASE 87 IU/L (42-121); ANION GAP 17 (8-16); ASPARTATE AMINO TRANSFERASE 16 IU/L (15-46); BILIRUBIN,INDIRECT 0.1 mg/dl (0-1.1); BILIRUBIN,TOTAL 0.1 mg/dl (0.2-1.3); BLOOD UREA NITROGEN 17 mg/dl (7-20); CALCIUM 9.7 mg/dl (8.4-10.2); CARBON DIOXIDE 24 mmol/L (21-31); CHLORIDE 103 mmol/L (97-110); CREATININE 0.72 mg/dl (0.44-1.00); GLUCOSE 218 mg/dl (70-220); LIPASE 135 U/L (23-300); POTASSIUM 3.6 mmol/L (3.5-5.1); SODIUM 140 mmol/L (135-144); TOTAL PROTEIN 6.6 g/dl (6.1-8.1)
[2018-05-19] MEDS: HYDROmorphONE 1 MG/ML SYG IV (22:53)
[2018-05-20] MEDS: HYDROmorphONE 2 MG/ML SYG IV (01:06)
[2018-05-20] MEDS ORDERED: ONDANSETRON 4 MG INJ IV (04:30)
[2018-05-20] MEDS ORDERED: NACL 0.9% 3 ML SYG IV (04:30)
[2018-05-20] MEDS ORDERED: ALBUTEROL/IPRATROPIUM (NEB) 3 ML AMP HHN (04:30)
[2018-05-20] MEDS: DEXTROSE 5%-0.45% NACL 1,000 ML IV ×2 (04:33→14:14)
[2018-05-20] MEDS: PIPER-TAZO 3.375 GM IV (PMX) 100 ML IVPB ×2 (04:49→12:00)
[2018-05-20 05:56] LABS: ADD MAN DIFF? NO
[2018-05-20] MEDS ORDERED: GLUCOSE GEL 15 GRAM TUBE PO ×2 (06:00)
[2018-05-20] MEDS ORDERED: DEXTROSE 50% 50 ML SYRINGE IV ×2 (06:00)
[2018-05-20] MEDS ORDERED: GLUCOSE GEL 15 GRAM TUBE BUCCAL (06:00)
[2018-05-20] MEDS ORDERED: GLUCAGON 1 MG INJ IM (06:00)
[2018-05-20 06:06] LABS: BASOPHIL # 0.1 10^3/ul (0.0-0.1); BASOPHILS % 0.7 % (0.0-2.0); EOSINOPHILS # 0.4 10^3/ul (0.0-0.5); EOSINOPHILS % 3.8 % (0.0-7.0); HEMATOCRIT 42.2 % (37.0-47.0); HEMOGLOBIN 13.4 g/dl (12.0-16.0); IMMATURE GRANS #M 0.04 10^3/ul; IMMATURE GRANS % (M) 0.4 %; LYMPHOCYTES # 3.4 10^3/ul (0.8-2.9); LYMPHOCYTES % 33.3 % (15.0-51.0); MEAN CORPUSCULAR HEMOGLOBIN 28.6 pg (29.0-33.0); MEAN CORPUSCULAR HGB CONC 31.8 g/dl (32.0-37.0); MEAN CORPUSCULAR VOLUME 90.2 fl (82.0-101.0); MONOCYTE # 0.9 10^3/ul (0.3-0.9); MONOCYTES % 8.7 % (0.0-11.0); NEUTROPHIL # 5.4 10^3/ul (1.6-7.5); NEUTROPHILS % 53.1 % (39.0-77.0); PLATELET COUNT 304 10^3/UL (140-415); RED BLOOD COUNT 4.68 10^6/ul (4.20-5.40); RED CELL DISTRIBUTION WIDTH 14.9 % (11.5-14.5)
[2018-05-20 06:06] LABS: WHITE BLOOD COUNT 10.1 10^3/ul (4.8-10.8)
[2018-05-20 06:41] LABS: ALANINE AMINOTRANSFERASE 29 IU/L (13-69); ALBUMIN 3.4 g/dl (3.3-4.9); ALBUMIN/GLOBULIN RATIO 1.36; ALKALINE PHOSPHATASE 72 IU/L (42-121); ANION GAP 12 (8-16); ASPARTATE AMINO TRANSFERASE 15 IU/L (15-46); BILIRUBIN,INDIRECT 0.1 mg/dl (0-1.1); BILIRUBIN,TOTAL 0.1 mg/dl (0.2-1.3); BLOOD UREA NITROGEN 13 mg/dl (7-20); CARBON DIOXIDE 26 mmol/L (21-31); CHLORIDE 106 mmol/L (97-110); CREATININE 0.66 mg/dl (0.44-1.00); GLUCOSE 158 mg/dl (70-220); POTASSIUM 3.7 mmol/L (3.5-5.1); SODIUM 140 mmol/L (135-144); TOTAL PROTEIN 5.9 g/dl (6.1-8.1)
[2018-05-20] MEDS: INSULIN ASPART [NOVOLOG] 3 ML PEN SC ×2 (08:50→13:40)
[2018-05-20] MEDS: morphine 2 MG INJ IV ×3 (08:51→16:20)
[2018-05-20] MEDS: LORAZEPAM 2 MG INJ IV (14:14)
[2018-05-20] MEDS ORDERED: ALBUTEROL 0.083% (NEB) 2.5 MG/3 ML AMP NEB (16:00)
[2018-05-20] MEDS ORDERED: ALPRAZOLAM 1 MG TAB PO (16:00)
[2018-05-20] MEDS ORDERED: PAROXETINE 20 MG TAB PO (16:00)
[2018-05-20] MEDS ORDERED: TIOTROPIUM 18 MCG CAPSULE INHA DEV INH (17:00)
[2018-05-20] MEDS ORDERED: ACCU-CHEK XX (17:25)
[2018-05-20] MEDS ORDERED: metFORMIN 500 MG TAB PO (17:55)
[2018-05-20] MEDS ORDERED: INSULIN ASPART [NOVOLOG] 3 ML PEN SC (17:55)
[2018-05-20] MEDS ORDERED: FAMOTIDINE 20 MG TAB PO (21:00)
[2018-05-20] MEDS ORDERED: GABAPENTIN 300 MG CAP PO (21:00)
[2018-05-20] MEDS ORDERED: NYSTATIN 15 GM CR TOP (21:00)
[2018-05-20] MEDS ORDERED: ATORVASTATIN 40 MG TAB PO (21:00)
[2018-05-20] MEDS ORDERED: morphine (ER) 30 MG TAB PO (21:00)
[2018-05-20] MEDS ORDERED: traZODone 100 MG TAB PO (21:00)
[2018-05-21] MEDS ORDERED: ACCU-CHEK XX (02:00)
[2018-05-21] MEDS ORDERED: HYDROCHLOROTHIAZIDE 25 MG TAB PO (09:00)
[2018-05-21] MEDS ORDERED: FUROSEMIDE 20 MG TAB PO (09:00)
[2018-05-21] MEDS ORDERED: ASPIRIN 81 MG TAB PO (09:00)
== END 2018-05-20 17:15 | disposition home or self-care (01) | DRG 392 ==
LOC: E/R 19:27 → MS1 05-20 01:02
PROVIDERS: Internal Medicine
DX: R10.11 Right upper quadrant pain (principal); Z68.41 Body mass index [BMI] 40.0-44.9, adult; K80.20 Calculus of gallbladder without cholecystitis without obstruction; I11.0 Hypertensive heart disease with heart failure; I50.9 Heart failure, unspecified; E11.40 Type 2 diabetes mellitus with diabetic neuropathy, unspecified; J44.9 Chronic obstructive pulmonary disease, unspecified; G89.4 Chronic pain syndrome; E66.9 Obesity, unspecified; F17.210 Nicotine dependence, cigarettes, uncomplicated; Z79.82 Long term (current) use of aspirin; Z79.4 Long term (current) use of insulin
CPT/HCPCS: 36415; 76705; 78226; 80053; 82962; 83690; 85025; 96374; 96375; 99285-25

== ENCOUNTER 2018-06-22 19:52 | Inpatient (IN) | payer OTHER ==
[2018-06-22] MEDS: SOD CHLORIDE 0.9% 500 ML IV (22:01)
[2018-06-22 22:31] LABS: WHITE BLOOD COUNT 15.8 10^3/ul (4.8-10.8)
[2018-06-22 22:31] LABS: HEMATOCRIT 44.8 % (37.0-47.0); HEMOGLOBIN 14.8 g/dl (12.0-16.0); MEAN CORPUSCULAR HEMOGLOBIN 29.1 pg (29.0-33.0); PLATELET COUNT 358 10^3/UL (140-415); RED BLOOD COUNT 5.09 10^6/ul (4.20-5.40); RED CELL DISTRIBUTION WIDTH 13.7 % (11.5-14.5)
[2018-06-22 22:34] LABS: ADD MAN DIFF? YES; POSITIVE DIFF @See below
[2018-06-22 22:46] LABS: ALANINE AMINOTRANSFERASE 31 IU/L (13-69); ALBUMIN 4.2 g/dl (3.3-4.9); ALBUMIN/GLOBULIN RATIO 1.31; ALKALINE PHOSPHATASE 95 IU/L (42-121); ANION GAP 16 (8-16); ASPARTATE AMINO TRANSFERASE 21 IU/L (15-46); BILIRUBIN,INDIRECT 0.3 mg/dl (0-1.1); BILIRUBIN,TOTAL 0.3 mg/dl (0.2-1.3); BLOOD UREA NITROGEN 18 mg/dl (7-20); CALCIUM 10.1 mg/dl (8.4-10.2); CARBON DIOXIDE 29 mmol/L (21-31); CHLORIDE 97 mmol/L (97-110); CREATININE 0.77 mg/dl (0.44-1.00); GLUCOSE 120 mg/dl (70-220); LIPASE 89 U/L (23-300); POTASSIUM 3.7 mmol/L (3.5-5.1); SODIUM 138 mmol/L (135-144); TOTAL PROTEIN 7.4 g/dl (6.1-8.1)
[2018-06-22 22:47] LABS: INR 0.93; PARTIAL THROMBOPLASTIN TIME 21.8 Sec (25.0-35.0); PROTIME 12.5 Sec (11.9-14.9)
[2018-06-22 22:58] LABS: B-TYPE NATRIURETIC PEPTIDE 36 PG/ML (0-125); TROPONIN-I < 0.012 ng/ml (0.000-0.120)
[2018-06-22] MEDS: morphine 4 MG/ML VIAL IV (23:17)
[2018-06-22] MEDS: ONDANSETRON 4 MG INJ IV (23:17)
[2018-06-23 00:48] LABS: ANISOCYTOSIS 1+ (0-0); EOSINOPHILS % (M) 4 % (0-7); LYMPHOCYTES #M 4.7 10^3/ul (0.8-2.9); LYMPHOCYTES % (M) 30 % (15-51); METAMYELOCYTES #M 0.1 10^3/ul (0.0-0.0); METAMYELOCYTES %M 1 % (0-0); MICROCYTOSIS 1+ (0-0); MONOCYTE #M 1.4 10^3/ul (0.3-0.9); MONOCYTES % (M) 9 % (0-11); MYELOCYTES #M 0.1 10^3/ul (0.0-0.0); MYELOCYTES % (M) 1 % (0-0); PLATELET ESTIMATE NORMAL; REACTIVE LYMPHOCYTES #M 0.1 10^3/ul (0.0-0.0); REACTIVE LYMPHOCYTES% (M) 1 % (0-0); SEGMENTED NEUTROPHILS (M) % 54 % (39-77); SMUDGE%M 13 % (0-0)
[2018-06-23] MEDS: HYDROmorphONE 1 MG/ML SYG IV (00:48)
[2018-06-23] MEDS: PIPER-TAZO 3.375 GM IV (PMX) 100 ML IVPB (00:48)
[2018-06-23] MEDS ORDERED: ACETAMINOPHEN 325 MG TAB PO (03:00)
[2018-06-23] MEDS ORDERED: VANCOMYCIN IV PER PHARMACY XX (03:00)
[2018-06-23] MEDS ORDERED: ALBUTEROL 0.083% (NEB) 2.5 MG/3 ML AMP NEB (03:00)
[2018-06-23] MEDS ORDERED: BISACODYL (EC) 5 MG TAB PO (03:00)
[2018-06-23] MEDS ORDERED: NACL 0.9% 3 ML SYG IV (03:00)
[2018-06-23] MEDS ORDERED: DOCUSATE SODIUM 100 MG CAP PO (03:00)
[2018-06-23] MEDS: morphine (ER) 30 MG TAB PO ×3 (03:40→20:30)
[2018-06-23] MEDS: morphine 2 MG INJ IV ×5 (03:40→20:30)
[2018-06-23] MEDS: ONDANSETRON 4 MG INJ IV ×2 (03:53→21:23)
[2018-06-23] MEDS ORDERED: GLUCAGON 1 MG INJ IM (05:30)
[2018-06-23] MEDS ORDERED: GLUCOSE GEL 15 GRAM TUBE BUCCAL (05:30)
[2018-06-23] MEDS ORDERED: DEXTROSE 50% 50 ML SYRINGE IV ×2 (05:30)
[2018-06-23] MEDS ORDERED: GLUCOSE GEL 15 GRAM TUBE PO ×2 (05:30)
[2018-06-23] MEDS: VANCOMYCIN 2 GM in SOD CHLORIDE 0.9% 500 ML IVPB ×2 (05:48→17:06)
[2018-06-23] MEDS: KETOCONAZOLE 2% 15 GM CR TOP ×3 (06:00→20:33)
[2018-06-23 06:15] LABS: CREATINE KINASE 25 IU/L (23-200)
[2018-06-23 06:16] LABS: C-REACTIVE PROTEIN 0.6 mg/dl (0.0-0.9)
[2018-06-23 06:23] LABS: CK INDEX 1.6; TROPONIN-I < 0.012 ng/ml (0.000-0.120)
[2018-06-23 06:35] LABS: HEMOGLOBIN A1C 10.5 % (0-5.9)
[2018-06-23 07:46] LABS: ERYTHROCYTE SEDIMENTATION RATE 12 mm/Hr (0-30)
[2018-06-23] MEDS: ASPIRIN 81 MG TAB PO (08:09)
[2018-06-23] MEDS: GABAPENTIN 300 MG CAP PO ×3 (08:09→20:29)
[2018-06-23] MEDS: ISOSORBIDE MONONITRATE(SR)60 MG TAB PO (08:10)
[2018-06-23] MEDS: FUROSEMIDE 40 MG TAB PO (08:10)
[2018-06-23] MEDS: HYDROCHLOROTHIAZIDE 25 MG TAB PO (08:11)
[2018-06-23] MEDS: FAMOTIDINE 20 MG TAB PO ×2 (08:11→20:29)
[2018-06-23] MEDS: PAROXETINE 20 MG TAB PO (08:11)
[2018-06-23] MEDS: FLUTICASONE/VILANTEROL 200-25 INH DEVICE INH (08:12)
[2018-06-23] MEDS: TIOTROPIUM 18 MCG CAPSULE INHA DEV INH (08:12)
[2018-06-23] MEDS: INSULIN ASPART [NOVOLOG] 3 ML PEN SC ×6 (08:20→21:28)
[2018-06-23] MEDS: ENOXAPARIN 40 MG/0.4 ML SYG SC (08:21)
[2018-06-23] MEDS ORDERED: NYSTATIN 15 GM CR TOP (09:00)
[2018-06-23 09:20] LABS: CREATINE KINASE 24 IU/L (23-200)
[2018-06-23 09:33] LABS: CK INDEX 1.8; CK-MB 0.43 ng/ml (0.0-2.4); TROPONIN-I < 0.012 ng/ml (0.000-0.120)
[2018-06-23 10:11] LABS: ADD UMIC YES; UR ASCORBIC ACID NEGATIVE (NEGATIVE); UR BACTERIA FEW /HPF (NONE SEEN); UR BILIRUBIN (Dip) NEGATIVE (NEGATIVE); UR BLOOD (Dip) NEGATIVE (NEGATIVE); UR CLARITY CLEAR (CLEAR); UR COLOR YELLOW (YELLOW); UR GLUCOSE (Dip) NEGATIVE (NEGATIVE); UR KETONES (Dip) NEGATIVE (NEGATIVE); UR LEUKOCYTE ESTERASE (Dip) TRACE Leu/ul (NEGATIVE); UR MUCUS FEW /HPF (NONE SEEN); UR NITRITE (Dip) NEGATIVE (NEGATIVE); UR RBC 0 /HPF (0-5); UR SPECIFIC GRAVITY (Dip) 1.008 (1.003-1.030); UR SQUAMOUS EPITHELIAL CELL FEW /HPF (FEW); UR TOTAL PROTEIN (Dip) NEGATIVE (NEGATIVE); UR UROBILINOGEN (Dip) NEGATIVE (NEGATIVE); UR WBC 3 /HPF (0-5)
[2018-06-23] MEDS: traZODone 100 MG TAB PO (20:29)
[2018-06-23] MEDS: ATORVASTATIN 40 MG TAB PO (20:29)
[2018-06-23] MEDS: LACTOBACILLUS RHAMNOSUS CAP PO (20:29)
[2018-06-23] MEDS: INSULIN GLARGINE [LANTus] (100 UNITS/ML) SYG SC (21:20)
[2018-06-24] MEDS: morphine 2 MG INJ IV ×5 (00:37→18:13)
[2018-06-24] MEDS: ONDANSETRON 4 MG INJ IV ×5 (01:03→18:13)
[2018-06-24] MEDS: ACCU-CHEK XX ×3 (02:07→20:41)
[2018-06-24] MEDS: INSULIN ASPART [NOVOLOG] 3 ML PEN SC ×7 (02:34→20:37)
[2018-06-24 05:21] LABS: ADD MAN DIFF? NO
[2018-06-24 05:29] LABS: BASOPHIL # 0.1 10^3/ul (0.0-0.1); BASOPHILS % 0.6 % (0.0-2.0); EOSINOPHILS # 0.5 10^3/ul (0.0-0.5); EOSINOPHILS % 5.1 % (0.0-7.0); HEMATOCRIT 42.8 % (37.0-47.0); HEMOGLOBIN 13.6 g/dl (12.0-16.0); LYMPHOCYTES # 2.6 10^3/ul (0.8-2.9); LYMPHOCYTES % 29.1 % (15.0-51.0); MEAN CORPUSCULAR HEMOGLOBIN 29.4 pg (29.0-33.0); MEAN CORPUSCULAR HGB CONC 31.8 g/dl (32.0-37.0); MEAN CORPUSCULAR VOLUME 92.4 fl (82.0-101.0); MEAN PLATELET VOLUME 10.1 fl (7.4-10.4); MONOCYTE # 0.6 10^3/ul (0.3-0.9); MONOCYTES % 6.9 % (0.0-11.0); NEUTROPHIL # 5.2 10^3/ul (1.6-7.5); PLATELET COUNT 301 10^3/UL (140-415); RED BLOOD COUNT 4.63 10^6/ul (4.20-5.40); RED CELL DISTRIBUTION WIDTH 13.7 % (11.5-14.5)
[2018-06-24 05:50] LABS: ALANINE AMINOTRANSFERASE 32 IU/L (13-69); ALBUMIN 3.6 g/dl (3.3-4.9); ALBUMIN/GLOBULIN RATIO 1.33; ALKALINE PHOSPHATASE 105 IU/L (42-121); ANION GAP 16 (8-16); ASPARTATE AMINO TRANSFERASE 16 IU/L (15-46); BILIRUBIN,INDIRECT 0.2 mg/dl (0-1.1); BILIRUBIN,TOTAL 0.2 mg/dl (0.2-1.3); BLOOD UREA NITROGEN 19 mg/dl (7-20); CALCIUM 9.3 mg/dl (8.4-10.2); CARBON DIOXIDE 32 mmol/L (21-31); CHLORIDE 96 mmol/L (97-110); CREATININE 0.77 mg/dl (0.44-1.00); MAGNESIUM 1.7 mg/dl (1.7-2.5); SODIUM 140 mmol/L (135-144); TOTAL PROTEIN 6.3 g/dl (6.1-8.1)
[2018-06-24 06:06] LABS: GLUCOSE 407 mg/dl (70-220)
[2018-06-24] MEDS: VANCOMYCIN 2 GM in SOD CHLORIDE 0.9% 500 ML IVPB ×2 (06:41→18:13)
[2018-06-24] MEDS: ALPRAZOLAM 1 MG TAB PO ×2 (06:49→23:25)
[2018-06-24] MEDS: GABAPENTIN 300 MG CAP PO ×3 (08:33→20:33)
[2018-06-24] MEDS: ASPIRIN 81 MG TAB PO (08:33)
[2018-06-24] MEDS: PAROXETINE 20 MG TAB PO (08:33)
[2018-06-24] MEDS: FAMOTIDINE 20 MG TAB PO ×2 (08:34→20:35)
[2018-06-24] MEDS: morphine (ER) 30 MG TAB PO ×2 (08:34→20:34)
[2018-06-24] MEDS: ISOSORBIDE MONONITRATE(SR)60 MG TAB PO (08:34)
[2018-06-24] MEDS: FUROSEMIDE 40 MG TAB PO (08:34)
[2018-06-24] MEDS: TIOTROPIUM 18 MCG CAPSULE INHA DEV INH (08:35)
[2018-06-24] MEDS: LACTOBACILLUS RHAMNOSUS CAP PO ×2 (08:36→20:33)
[2018-06-24] MEDS: FLUTICASONE/VILANTEROL 200-25 INH DEVICE INH (08:36)
[2018-06-24] MEDS: NICOTINE (14 MG/24 HR) PATCH TRANSDERM (08:38)
[2018-06-24] MEDS: KETOCONAZOLE 2% 15 GM CR TOP ×2 (08:39→20:40)
[2018-06-24] MEDS: ENOXAPARIN 40 MG/0.4 ML SYG SC (08:45)
[2018-06-24] MEDS: INSULIN GLARGINE [LANTus] (100 UNITS/ML) SYG SC ×2 (10:11→20:40)
[2018-06-24] MEDS: LINAGLIPTIN 5 MG TABLET PO (12:24)
[2018-06-24] MEDS: HYDROCODONE/APAP (10/325) TAB PO ×2 (12:24→20:58)
[2018-06-24 17:31] LABS: VANCOMYCIN,TROUGH 17.5 ug/ml (10.0-20.0)
[2018-06-24] MEDS: ATORVASTATIN 40 MG TAB PO (20:34)
[2018-06-24] MEDS: traZODone 100 MG TAB PO (20:34)
[2018-06-24] MEDS: morphine LIQ (10 MG/5 ML) CUP PO (23:25)
[2018-06-25] MEDS: ACCU-CHEK XX ×4 (02:00→17:30)
[2018-06-25] MEDS: INSULIN ASPART [NOVOLOG] 3 ML PEN SC ×7 (02:30→17:57)
[2018-06-25] MEDS: INSULIN REGULAR, HUMAN 100 UNIT/1 ML 3ML VIAL IV (04:40)
[2018-06-25] MEDS: morphine LIQ (10 MG/5 ML) CUP PO ×3 (05:37→16:38)
[2018-06-25] MEDS: VANCOMYCIN 1.75 GM in SOD CHLORIDE 0.9% 500 ML IVPB ×2 (05:39→18:00)
[2018-06-25] MEDS: ISOSORBIDE MONONITRATE(SR)60 MG TAB PO (08:34)
[2018-06-25] MEDS: TIOTROPIUM 18 MCG CAPSULE INHA DEV INH (08:34)
[2018-06-25] MEDS: FLUTICASONE/VILANTEROL 200-25 INH DEVICE INH (08:34)
[2018-06-25] MEDS: PAROXETINE 20 MG TAB PO (08:35)
[2018-06-25] MEDS: NICOTINE (14 MG/24 HR) PATCH TRANSDERM (08:35)
[2018-06-25] MEDS: GABAPENTIN 300 MG CAP PO ×2 (08:36→13:02)
[2018-06-25] MEDS: FUROSEMIDE 40 MG TAB PO (08:36)
[2018-06-25] MEDS: ASPIRIN 81 MG TAB PO (08:36)
[2018-06-25] MEDS: FAMOTIDINE 20 MG TAB PO (08:36)
[2018-06-25] MEDS: LACTOBACILLUS RHAMNOSUS CAP PO (08:36)
[2018-06-25] MEDS: LINAGLIPTIN 5 MG TABLET PO (08:37)
[2018-06-25] MEDS: morphine (ER) 30 MG TAB PO (08:37)
[2018-06-25] MEDS: KETOCONAZOLE 2% 15 GM CR TOP (08:38)
[2018-06-25] MEDS: ENOXAPARIN 40 MG/0.4 ML SYG SC (09:54)
[2018-06-25] MEDS: ALPRAZOLAM 1 MG TAB PO (10:47)
[2018-06-25] MEDS: HYDROCODONE/APAP (10/325) TAB PO (17:43)
[2018-06-25] MEDS ORDERED: INSULIN GLARGINE [LANTus] (100 UNITS/ML) SYG SC ×2 (20:00)
[2018-06-25] MEDS ORDERED: SENNA/DOCUSATE NA (8.6MG/50MG) TAB PO (21:00)
[2018-06-25] MEDS ORDERED: MICONAZOLE 200 MG VAG SUPP VAG (21:00)
[2018-06-26] MEDS ORDERED: FAMOTIDINE 20 MG TAB PO (09:00)
== END 2018-06-25 19:55 | DRG 603 ==
LOC: E/R 19:52 → 6WM 06-23 02:24
DX: L03.311 Cellulitis of abdominal wall (principal); Z68.41 Body mass index [BMI] 40.0-44.9, adult; I50.32 Chronic diastolic (congestive) heart failure; E66.01 Morbid (severe) obesity due to excess calories; Z71.3 Dietary counseling and surveillance; R62.7 Adult failure to thrive; E11.8 Type 2 diabetes mellitus with unspecified complications; R07.89 Other chest pain; F17.200 Nicotine dependence, unspecified, uncomplicated; J44.9 Chronic obstructive pulmonary disease, unspecified; I11.0 Hypertensive heart disease with heart failure; E78.5 Hyperlipidemia, unspecified; M48.00 Spinal stenosis, site unspecified
CPT/HCPCS: 71045; 72100; 80053; 80202; 81001; 82550; 82553; 82962; 83036; 83605; 83690; 83735; 83880; 84443; 84484; 85025; 85610; 85651; 85730; 86140; 87040; 93005; 97161; G0378

== ENCOUNTER 2018-07-06 13:35 | Emergency (ER) | payer OTHER ==
[2018-07-06] MEDS: ONDANSETRON 4 MG INJ IV (15:35)
[2018-07-06] MEDS: SOD CHLORIDE 0.9% 1,000 ML IV ×2 (15:35→17:02)
[2018-07-06 15:48] LABS: ADD UMIC NO; UR ASCORBIC ACID NEGATIVE (NEGATIVE); UR BILIRUBIN (Dip) NEGATIVE (NEGATIVE); UR BLOOD (Dip) NEGATIVE (NEGATIVE); UR CLARITY CLEAR (CLEAR); UR COLOR STRAW (YELLOW); UR GLUCOSE (Dip) 3+ mg/dL (NEGATIVE); UR KETONES (Dip) NEGATIVE (NEGATIVE); UR LEUKOCYTE ESTERASE (Dip) NEGATIVE Leu/ul (NEGATIVE); UR NITRITE (Dip) NEGATIVE (NEGATIVE); UR SPECIFIC GRAVITY (Dip) 1.032 (1.003-1.030); UR TOTAL PROTEIN (Dip) NEGATIVE (NEGATIVE); UR UROBILINOGEN (Dip) NEGATIVE (NEGATIVE)
[2018-07-06 15:57] LABS: ADD MAN DIFF? NO
[2018-07-06 16:02] LABS: WHITE BLOOD COUNT 12.1 10^3/ul (4.8-10.8)
[2018-07-06 16:02] LABS: BASOPHIL # 0.1 10^3/ul (0.0-0.1); BASOPHILS % 0.5 % (0.0-2.0); EOSINOPHILS # 0.4 10^3/ul (0.0-0.5); HEMATOCRIT 43.2 % (37.0-47.0); HEMOGLOBIN 14.3 g/dl (12.0-16.0); LYMPHOCYTES # 2.7 10^3/ul (0.8-2.9); LYMPHOCYTES % 22.2 % (15.0-51.0); MEAN CORPUSCULAR HEMOGLOBIN 29.2 pg (29.0-33.0); MEAN CORPUSCULAR HGB CONC 33.1 g/dl (32.0-37.0); MEAN CORPUSCULAR VOLUME 88.3 fl (82.0-101.0); MEAN PLATELET VOLUME 9.9 fl (7.4-10.4); MONOCYTE # 1.1 10^3/ul (0.3-0.9); MONOCYTES % 8.7 % (0.0-11.0); NEUTROPHIL # 7.9 10^3/ul (1.6-7.5); NEUTROPHILS % 65.3 % (39.0-77.0); PLATELET COUNT 359 10^3/UL (140-415); RED BLOOD COUNT 4.89 10^6/ul (4.20-5.40); RED CELL DISTRIBUTION WIDTH 13.4 % (11.5-14.5)
[2018-07-06] MEDS: LIDOCAINE/MYLANTA 40 ML BTL PO (16:14)
[2018-07-06] MEDS: FAMOTIDINE 20 MG INJ IV (16:14)
[2018-07-06 16:24] LABS: ALANINE AMINOTRANSFERASE 21 IU/L (13-69); ALBUMIN/GLOBULIN RATIO 1.48; ALKALINE PHOSPHATASE 111 IU/L (42-121); ANION GAP 16 (8-16); ASPARTATE AMINO TRANSFERASE 17 IU/L (15-46); BILIRUBIN,INDIRECT 0.3 mg/dl (0-1.1); BILIRUBIN,TOTAL 0.3 mg/dl (0.2-1.3); BLOOD UREA NITROGEN 12 mg/dl (7-20); CALCIUM 9.7 mg/dl (8.4-10.2); CARBON DIOXIDE 27 mmol/L (21-31); CHLORIDE 94 mmol/L (97-110); CREATININE 0.79 mg/dl (0.44-1.00); LIPASE 179 U/L (23-300); POTASSIUM 4.1 mmol/L (3.5-5.1); SODIUM 133 mmol/L (135-144); TOTAL PROTEIN 6.7 g/dl (6.1-8.1)
[2018-07-06 16:30] LABS: GLUCOSE 463 mg/dl (70-220)
[2018-07-06] MEDS: KETOROLAC 15 MG INJ IV (16:30)
[2018-07-06] MEDS: ACETAMINOPHEN 325 MG TAB PO (16:32)
[2018-07-06] MEDS: INSULIN REGULAR, HUMAN 100 UNIT/1 ML 3ML VIAL SC (17:04)
== END 2018-07-06 17:46 | disposition home or self-care (01) ==
LOC: E/R 13:35
DX: E11.65 Type 2 diabetes mellitus with hyperglycemia (principal); D72.829 Elevated white blood cell count, unspecified; I50.9 Heart failure, unspecified; R11.2 Nausea with vomiting, unspecified; R10.9 Unspecified abdominal pain; J44.9 Chronic obstructive pulmonary disease, unspecified; I11.0 Hypertensive heart disease with heart failure; F17.210 Nicotine dependence, cigarettes, uncomplicated; E66.9 Obesity, unspecified; Z91.14 Patient's other noncompliance with medication regimen; Z79.82 Long term (current) use of aspirin; Z79.4 Long term (current) use of insulin
CPT/HCPCS: 71045; 80053; 81003; 82962; 83690; 85025; 96372; 96374; 96375; 99284-25

== ENCOUNTER 2018-07-23 09:50 | Inpatient (IN) | payer OTHER ==
[2018-07-23] MEDS: LORAZEPAM 2 MG INJ IV (10:50)
[2018-07-23 10:54] LABS: ADD MAN DIFF? NO
[2018-07-23 11:05] LABS: WHITE BLOOD COUNT 10.5 10^3/ul (4.8-10.8)
[2018-07-23 11:05] LABS: BASOPHIL # 0.1 10^3/ul (0.0-0.1); BASOPHILS % 0.7 % (0.0-2.0); EOSINOPHILS # 0.2 10^3/ul (0.0-0.5); EOSINOPHILS % 1.4 % (0.0-7.0); HEMATOCRIT 43.2 % (37.0-47.0); HEMOGLOBIN 13.8 g/dl (12.0-16.0); LYMPHOCYTES # 1.4 10^3/ul (0.8-2.9); LYMPHOCYTES % 13.6 % (15.0-51.0); MEAN CORPUSCULAR HEMOGLOBIN 28.7 pg (29.0-33.0); MEAN CORPUSCULAR HGB CONC 31.9 g/dl (32.0-37.0); MEAN CORPUSCULAR VOLUME 89.8 fl (82.0-101.0); MEAN PLATELET VOLUME 9.7 fl (7.4-10.4); MONOCYTE # 0.3 10^3/ul (0.3-0.9); NEUTROPHIL # 8.5 10^3/ul (1.6-7.5); NEUTROPHILS % 80.9 % (39.0-77.0); PLATELET COUNT 402 10^3/UL (140-415); RED BLOOD COUNT 4.81 10^6/ul (4.20-5.40); RED CELL DISTRIBUTION WIDTH 13.6 % (11.5-14.5)
[2018-07-23] MEDS: SOD CHLORIDE 0.9% 1,000 ML IV (11:08)
[2018-07-23 11:18] LABS: ALANINE AMINOTRANSFERASE 35 IU/L (13-69); ALBUMIN 4.1 g/dl (3.3-4.9); ALBUMIN/GLOBULIN RATIO 1.51; ALKALINE PHOSPHATASE 84 IU/L (42-121); ANION GAP 14 (5-13); ASPARTATE AMINO TRANSFERASE 17 IU/L (15-46); BILIRUBIN,INDIRECT 0.4 mg/dl (0-1.1); BILIRUBIN,TOTAL 0.4 mg/dl (0.2-1.3); BLOOD UREA NITROGEN 15 mg/dl (7-20); CALCIUM 9.3 mg/dl (8.4-10.2); CARBON DIOXIDE 23 mmol/L (21-31); CHLORIDE 100 mmol/L (97-110); CREATINE KINASE 34 IU/L (23-200); CREATININE 0.69 mg/dl (0.44-1.00); GLUCOSE 379 mg/dl (70-220); POTASSIUM 4.4 mmol/L (3.5-5.1); SODIUM 137 mmol/L (135-144); TOTAL PROTEIN 6.8 g/dl (6.1-8.1)
[2018-07-23 11:21] LABS: INR 0.94; PARTIAL THROMBOPLASTIN TIME 27.7 Sec (23.0-35.0); PROTIME 12.7 Sec (11.9-14.9)
[2018-07-23] MEDS ORDERED: morphine 4 MG/ML VIAL IV (11:28)
[2018-07-23 11:30] LABS: B-TYPE NATRIURETIC PEPTIDE 64 PG/ML (0-125); CK INDEX 2.1; TROPONIN-I < 0.012 ng/ml (0.000-0.120)
[2018-07-23] MEDS: ALBUTEROL 0.083% (NEB) 2.5 MG/3 ML AMP NEB (11:56)
[2018-07-23] MEDS: IPRATROPIUM (NEB) 0.5 MG/2.5 ML AMP NEB (11:56)
[2018-07-23] MEDS ORDERED: ACETAMINOPHEN 325 MG TAB PO (12:00)
[2018-07-23] MEDS ORDERED: ONDANSETRON 4 MG INJ IV (12:00)
[2018-07-23] MEDS: FUROSEMIDE 40 MG INJ IV (12:08)
[2018-07-23] MEDS: ONDANSETRON 4 MG INJ IV ×2 (12:08→16:28)
[2018-07-23] MEDS: HYDROmorphONE 2 MG/ML SYG IV (12:08)
[2018-07-23] MEDS ORDERED: HYDROCODONE/APAP (7.5/325) TAB PO (15:00)
[2018-07-23 15:59] LABS: ADD UMIC NO; UR ASCORBIC ACID NEGATIVE (NEGATIVE); UR BILIRUBIN (Dip) NEGATIVE (NEGATIVE); UR BLOOD (Dip) NEGATIVE (NEGATIVE); UR CLARITY CLEAR (CLEAR); UR COLOR COLORLESS (YELLOW); UR GLUCOSE (Dip) 3+ mg/dL (NEGATIVE); UR KETONES (Dip) NEGATIVE (NEGATIVE); UR LEUKOCYTE ESTERASE (Dip) NEGATIVE Leu/ul (NEGATIVE); UR NITRITE (Dip) NEGATIVE (NEGATIVE); UR SPECIFIC GRAVITY (Dip) 1.011 (1.003-1.030); UR TOTAL PROTEIN (Dip) NEGATIVE (NEGATIVE); UR UROBILINOGEN (Dip) NEGATIVE (NEGATIVE)
[2018-07-23 16:11] LABS: AMPHETAMINE/METHAMPHETAMINE Negative (NEGATIVE); BARBITURATES Negative (NEGATIVE); BENZODIAZEPINES Negative (NEGATIVE); CANNABINOIDS Negative (NEGATIVE); COCAINE Negative (NEGATIVE)
[2018-07-23] MEDS: morphine 2 MG INJ IV ×2 (16:28→20:26)
[2018-07-23 16:32] LABS: OPIATES Positive (NEGATIVE)
[2018-07-23] MEDS: ACCU-CHEK XX ×2 (17:39→21:49)
[2018-07-23] MEDS: INSULIN ASPART [NOVOLOG] 3 ML PEN SC ×2 (17:55)
[2018-07-23] MEDS: metFORMIN 500 MG TAB PO (18:29)
[2018-07-23] MEDS: INSULIN REGULAR, HUMAN 100 UNIT/1 ML 3ML VIAL IV ×2 (18:31→21:29)
[2018-07-23] MEDS: INSULIN GLARGINE [LANTus] (100 UNITS/ML) SYG SC (18:38)
[2018-07-23 18:39] LABS: CREATINE KINASE 42 IU/L (23-200)
[2018-07-23 18:52] LABS: CK INDEX 1.6; CK-MB 0.67 ng/ml (0.0-2.4); TROPONIN-I < 0.012 ng/ml (0.000-0.120)
[2018-07-23 19:00] LABS: GLUCOSE 520 mg/dl (70-220)
[2018-07-23] MEDS: HYDROCODONE/APAP (10/325) TAB PO (19:19)
[2018-07-23] MEDS: ALPRAZOLAM 0.5 MG TAB PO (19:20)
[2018-07-23] MEDS: ARFORMOTEROL TARTRATE 15MCG/2 ML AMP INH (20:07)
[2018-07-23] MEDS: BUDESONIDE (NEB) 0.5MG/2ML AMP INH (20:08)
[2018-07-23] MEDS: NYSTATIN 15 GM CR TOP (21:22)
[2018-07-23] MEDS: traZODone 100 MG TAB PO (21:23)
[2018-07-23] MEDS: ATORVASTATIN 40 MG TAB PO (21:23)
[2018-07-23] MEDS: GABAPENTIN 300 MG CAP PO (21:23)
[2018-07-23] MEDS: PAROXETINE 20 MG TAB PO (21:23)
[2018-07-23] MEDS: FAMOTIDINE 20 MG TAB PO (21:23)
[2018-07-23] MEDS: morphine (ER) 30 MG TAB PO (21:24)
[2018-07-23] MEDS ORDERED: INSULIN ASPART [NOVOLOG] 3 ML PEN SC (21:30)
[2018-07-24] MEDS: morphine 2 MG INJ IV ×4 (00:47→14:05)
[2018-07-24 06:13] LABS: ADD MAN DIFF? NO
[2018-07-24 06:17] LABS: WHITE BLOOD COUNT 14.3 10^3/ul (4.8-10.8)
[2018-07-24 06:17] LABS: BASOPHIL # 0.1 10^3/ul (0.0-0.1); BASOPHILS % 0.6 % (0.0-2.0); EOSINOPHILS # 0.2 10^3/ul (0.0-0.5); EOSINOPHILS % 1.5 % (0.0-7.0); HEMATOCRIT 42.9 % (37.0-47.0); HEMOGLOBIN 13.9 g/dl (12.0-16.0); LYMPHOCYTES % 27.8 % (15.0-51.0); MEAN CORPUSCULAR HEMOGLOBIN 29.1 pg (29.0-33.0); MEAN CORPUSCULAR HGB CONC 32.4 g/dl (32.0-37.0); MEAN CORPUSCULAR VOLUME 89.9 fl (82.0-101.0); MEAN PLATELET VOLUME 10.4 fl (7.4-10.4); MONOCYTE # 0.9 10^3/ul (0.3-0.9); MONOCYTES % 6.5 % (0.0-11.0); NEUTROPHIL # 9.1 10^3/ul (1.6-7.5); NEUTROPHILS % 63.3 % (39.0-77.0); PLATELET COUNT 368 10^3/UL (140-415); RED BLOOD COUNT 4.77 10^6/ul (4.20-5.40); RED CELL DISTRIBUTION WIDTH 13.7 % (11.5-14.5)
[2018-07-24 06:51] LABS: HEMOGLOBIN A1C 9.6 % (0-5.9)
[2018-07-24] MEDS: ACCU-CHEK XX ×4 (07:49→20:59)
[2018-07-24] MEDS: INSULIN ASPART [NOVOLOG] 3 ML PEN SC ×7 (07:59→20:58)
[2018-07-24] MEDS: BUDESONIDE (NEB) 0.5MG/2ML AMP INH ×2 (08:29→19:45)
[2018-07-24] MEDS: ARFORMOTEROL TARTRATE 15MCG/2 ML AMP INH ×2 (08:29→19:45)
[2018-07-24] MEDS: DOCUSATE SODIUM 250 MG CAP PO (08:35)
[2018-07-24] MEDS: FUROSEMIDE 20 MG INJ IV (08:36)
[2018-07-24] MEDS: TIOTROPIUM 18 MCG CAPSULE INHA DEV INH (08:36)
[2018-07-24] MEDS: GABAPENTIN 300 MG CAP PO ×3 (08:36→20:21)
[2018-07-24] MEDS: ASPIRIN 81 MG TAB PO (08:36)
[2018-07-24] MEDS: ISOSORBIDE MONONITRATE(SR)60 MG TAB PO (08:36)
[2018-07-24] MEDS: POLYETHYLENE GLYCOL 17 GM PACKET PO (08:37)
[2018-07-24] MEDS: morphine (ER) 30 MG TAB PO ×2 (08:37→20:20)
[2018-07-24] MEDS: FAMOTIDINE 20 MG TAB PO ×2 (08:37→20:18)
[2018-07-24] MEDS: metFORMIN 500 MG TAB PO ×2 (08:49→17:47)
[2018-07-24] MEDS: NYSTATIN 15 GM CR TOP ×3 (08:49→20:17)
[2018-07-24] MEDS ORDERED: PREGABALIN 50 MG CAP PO (13:00)
[2018-07-24] MEDS: HYDROCODONE/APAP (10/325) TAB PO ×2 (13:11→23:12)
[2018-07-24] MEDS: PREGABALIN 25 MG CAP PO ×2 (13:44→20:18)
[2018-07-24] MEDS: ALPRAZOLAM 0.5 MG TAB PO (16:10)
[2018-07-24] MEDS: PAROXETINE 20 MG TAB PO (20:18)
[2018-07-24] MEDS: ATORVASTATIN 40 MG TAB PO (20:18)
[2018-07-24] MEDS: traZODone 100 MG TAB PO (20:19)
[2018-07-24] MEDS: INSULIN GLARGINE [LANTus] (100 UNITS/ML) SYG SC (20:58)
[2018-07-24 23:29] LABS: CREATINE KINASE 39 IU/L (23-200)
[2018-07-24 23:47] LABS: CK-MB 0.79 ng/ml (0.0-2.4); TROPONIN-I < 0.012 ng/ml (0.000-0.120)
[2018-07-25] MEDS: ALPRAZOLAM 0.5 MG TAB PO (02:03)
[2018-07-25 06:11] LABS: ADD MAN DIFF? NO
[2018-07-25 06:17] LABS: WHITE BLOOD COUNT 10.3 10^3/ul (4.8-10.8)
[2018-07-25 06:17] LABS: BASOPHIL # 0.1 10^3/ul (0.0-0.1); BASOPHILS % 0.7 % (0.0-2.0); EOSINOPHILS # 0.4 10^3/ul (0.0-0.5); EOSINOPHILS % 4.2 % (0.0-7.0); HEMATOCRIT 41.2 % (37.0-47.0); HEMOGLOBIN 12.9 g/dl (12.0-16.0); LYMPHOCYTES # 3.4 10^3/ul (0.8-2.9); MEAN CORPUSCULAR HEMOGLOBIN 28.5 pg (29.0-33.0); MEAN CORPUSCULAR HGB CONC 31.3 g/dl (32.0-37.0); MEAN CORPUSCULAR VOLUME 91.2 fl (82.0-101.0); MONOCYTE # 0.7 10^3/ul (0.3-0.9); NEUTROPHIL # 5.6 10^3/ul (1.6-7.5); NEUTROPHILS % 54.6 % (39.0-77.0); PLATELET COUNT 388 10^3/UL (140-415); RED BLOOD COUNT 4.52 10^6/ul (4.20-5.40); RED CELL DISTRIBUTION WIDTH 13.5 % (11.5-14.5)
[2018-07-25] MEDS: ACCU-CHEK XX ×4 (07:25→20:10)
[2018-07-25] MEDS: HYDROCODONE/APAP (10/325) TAB PO ×2 (07:32→23:45)
[2018-07-25] MEDS: INSULIN ASPART [NOVOLOG] 3 ML PEN SC ×7 (08:15→20:23)
[2018-07-25] MEDS: DOCUSATE SODIUM 250 MG CAP PO (08:30)
[2018-07-25] MEDS: FAMOTIDINE 20 MG TAB PO ×2 (08:30→20:10)
[2018-07-25] MEDS: ASPIRIN 81 MG TAB PO (08:30)
[2018-07-25] MEDS: POLYETHYLENE GLYCOL 17 GM PACKET PO ×2 (08:36→12:10)
[2018-07-25] MEDS: GABAPENTIN 300 MG CAP PO ×3 (08:36→20:11)
[2018-07-25] MEDS: metFORMIN 500 MG TAB PO ×2 (08:37→17:14)
[2018-07-25] MEDS: ISOSORBIDE MONONITRATE(SR)60 MG TAB PO (08:37)
[2018-07-25] MEDS: PREGABALIN 25 MG CAP PO ×3 (08:38→20:11)
[2018-07-25] MEDS: FUROSEMIDE 20 MG INJ IV (08:38)
[2018-07-25] MEDS: morphine (ER) 30 MG TAB PO ×2 (08:39→20:11)
[2018-07-25] MEDS: LIDOCAINE 5% PATCH TD (08:40)
[2018-07-25] MEDS: BUDESONIDE (NEB) 0.5MG/2ML AMP INH ×2 (08:42→20:22)
[2018-07-25] MEDS: ARFORMOTEROL TARTRATE 15MCG/2 ML AMP INH ×2 (08:42→20:22)
[2018-07-25] MEDS: ENOXAPARIN 40 MG/0.4 ML SYG SC (08:50)
[2018-07-25] MEDS: NYSTATIN 15 GM CR TOP ×3 (08:51→20:10)
[2018-07-25] MEDS: TIOTROPIUM 18 MCG CAPSULE INHA DEV INH (09:00)
[2018-07-25] MEDS: SENNA TAB PO ×2 (12:11→20:10)
[2018-07-25] MEDS: morphine 2 MG INJ IV ×3 (12:14→22:35)
[2018-07-25] MEDS ORDERED: DEXTROSE 50% 50 ML SYRINGE IV ×2 (12:30)
[2018-07-25] MEDS ORDERED: GLUCOSE GEL 15 GRAM TUBE PO ×2 (12:30)
[2018-07-25] MEDS ORDERED: GLUCOSE GEL 15 GRAM TUBE BUCCAL (12:30)
[2018-07-25] MEDS ORDERED: GLUCAGON 1 MG INJ IM (12:30)
[2018-07-25] MEDS: ATORVASTATIN 40 MG TAB PO (20:10)
[2018-07-25] MEDS: traZODone 100 MG TAB PO (20:11)
[2018-07-25] MEDS: PAROXETINE 20 MG TAB PO (20:11)
[2018-07-25] MEDS: INSULIN GLARGINE [LANTus] (100 UNITS/ML) SYG SC (20:24)
[2018-07-26] MEDS: morphine 2 MG INJ IV ×6 (02:26→23:18)
[2018-07-26] MEDS: INSULIN ASPART [NOVOLOG] 3 ML PEN SC ×8 (02:36→21:00)
[2018-07-26 05:55] LABS: ADD MAN DIFF? NO
[2018-07-26 05:57] LABS: WHITE BLOOD COUNT 9.6 10^3/ul (4.8-10.8)
[2018-07-26 05:57] LABS: BASOPHIL # 0.1 10^3/ul (0.0-0.1); BASOPHILS % 0.5 % (0.0-2.0); EOSINOPHILS # 0.4 10^3/ul (0.0-0.5); EOSINOPHILS % 3.9 % (0.0-7.0); HEMATOCRIT 40.9 % (37.0-47.0); HEMOGLOBIN 12.8 g/dl (12.0-16.0); LYMPHOCYTES # 2.7 10^3/ul (0.8-2.9); LYMPHOCYTES % 27.7 % (15.0-51.0); MEAN CORPUSCULAR HEMOGLOBIN 28.4 pg (29.0-33.0); MEAN CORPUSCULAR HGB CONC 31.3 g/dl (32.0-37.0); MEAN CORPUSCULAR VOLUME 90.9 fl (82.0-101.0); MEAN PLATELET VOLUME 9.8 fl (7.4-10.4); MONOCYTE # 0.7 10^3/ul (0.3-0.9); MONOCYTES % 7.4 % (0.0-11.0); NEUTROPHIL # 5.8 10^3/ul (1.6-7.5); NEUTROPHILS % 60.1 % (39.0-77.0); PLATELET COUNT 377 10^3/UL (140-415); RED CELL DISTRIBUTION WIDTH 13.2 % (11.5-14.5)
[2018-07-26] MEDS: ACCU-CHEK XX ×4 (07:25→21:07)
[2018-07-26] MEDS: FUROSEMIDE 20 MG INJ IV (08:26)
[2018-07-26] MEDS: POLYETHYLENE GLYCOL 17 GM PACKET PO ×2 (08:26→17:44)
[2018-07-26] MEDS: SENNA TAB PO ×2 (08:27→21:09)
[2018-07-26] MEDS: ISOSORBIDE MONONITRATE(SR)60 MG TAB PO (08:27)
[2018-07-26] MEDS: GABAPENTIN 300 MG CAP PO ×3 (08:27→21:07)
[2018-07-26] MEDS: FAMOTIDINE 20 MG TAB PO ×2 (08:27→21:10)
[2018-07-26] MEDS: LIDOCAINE 5% PATCH TD (08:27)
[2018-07-26] MEDS: morphine (ER) 30 MG TAB PO ×2 (08:28→21:10)
[2018-07-26] MEDS: DOCUSATE SODIUM 250 MG CAP PO (08:28)
[2018-07-26] MEDS: PREGABALIN 25 MG CAP PO ×3 (08:28→21:09)
[2018-07-26] MEDS: ASPIRIN 81 MG TAB PO (08:28)
[2018-07-26] MEDS: metFORMIN 500 MG TAB PO ×2 (08:28→17:44)
[2018-07-26] MEDS: NYSTATIN 15 GM CR TOP ×3 (08:29→21:07)
[2018-07-26] MEDS: TIOTROPIUM 18 MCG CAPSULE INHA DEV INH (08:30)
[2018-07-26] MEDS: ENOXAPARIN 40 MG/0.4 ML SYG SC (08:34)
[2018-07-26] MEDS: NA PHOSPHATE/BIPHOS 133 ML ENEMA PR (11:00)
[2018-07-26] MEDS: ARFORMOTEROL TARTRATE 15MCG/2 ML AMP INH ×2 (11:10→20:00)
[2018-07-26] MEDS: BUDESONIDE (NEB) 0.5MG/2ML AMP INH ×2 (11:11→22:09)
[2018-07-26] MEDS ORDERED: INSULIN ASPART [NOVOLOG] 3 ML PEN SC ×2 (11:50→17:55)
[2018-07-26] MEDS: MAGNESIUM HYDROXIDE 30ML CUP PO (12:20)
[2018-07-26] MEDS: BISACODYL 10 MG SUPP PR (17:44)
[2018-07-26] MEDS: traZODone 100 MG TAB PO (21:08)
[2018-07-26] MEDS: PAROXETINE 20 MG TAB PO (21:09)
[2018-07-26] MEDS: ATORVASTATIN 40 MG TAB PO (21:10)
[2018-07-27] MEDS: morphine 2 MG INJ IV ×5 (03:17→20:44)
[2018-07-27] MEDS: ALPRAZOLAM 0.5 MG TAB PO (04:19)
[2018-07-27] MEDS: INSULIN ASPART [NOVOLOG] 3 ML PEN SC ×7 (07:51→22:06)
[2018-07-27] MEDS: metFORMIN 500 MG TAB PO ×2 (07:52→17:55)
[2018-07-27] MEDS: ACCU-CHEK XX ×4 (07:56→21:43)
[2018-07-27] MEDS: ASPIRIN 81 MG TAB PO (08:24)
[2018-07-27] MEDS: SENNA TAB PO (08:25)
[2018-07-27] MEDS: GABAPENTIN 300 MG CAP PO ×3 (08:25→21:58)
[2018-07-27] MEDS: FAMOTIDINE 20 MG TAB PO (08:25)
[2018-07-27] MEDS: DOCUSATE SODIUM 250 MG CAP PO (08:25)
[2018-07-27] MEDS: FUROSEMIDE 20 MG INJ IV (08:26)
[2018-07-27] MEDS: ISOSORBIDE MONONITRATE(SR)60 MG TAB PO (08:27)
[2018-07-27] MEDS: ENOXAPARIN 40 MG/0.4 ML SYG SC (08:28)
[2018-07-27] MEDS: LIDOCAINE 5% PATCH TD (08:28)
[2018-07-27] MEDS: NYSTATIN 15 GM CR TOP ×3 (08:29→21:00)
[2018-07-27] MEDS: POLYETHYLENE GLYCOL 17 GM PACKET PO ×2 (08:38→21:58)
[2018-07-27] MEDS: PREGABALIN 25 MG CAP PO ×3 (08:38→21:59)
[2018-07-27] MEDS: morphine (ER) 30 MG TAB PO ×2 (08:39→23:00)
[2018-07-27] MEDS: ARFORMOTEROL TARTRATE 15MCG/2 ML AMP INH ×2 (09:00→21:38)
[2018-07-27] MEDS: BUDESONIDE (NEB) 0.5MG/2ML AMP INH ×2 (09:00→21:37)
[2018-07-27] MEDS: TIOTROPIUM 18 MCG CAPSULE INHA DEV INH (11:55)
[2018-07-27] MEDS ORDERED: BISACODYL 10 MG SUPP PR (18:00)
[2018-07-27] MEDS: HYDROCODONE/APAP (10/325) TAB PO (18:14)
[2018-07-27] MEDS: MAGNESIUM HYDROXIDE 30ML CUP PO (18:41)
[2018-07-27] MEDS: BISACODYL (EC) 5 MG TAB PO (18:59)
[2018-07-27] MEDS: ATORVASTATIN 40 MG TAB PO (21:58)
[2018-07-27] MEDS: SENNA/DOCUSATE NA (8.6MG/50MG) TAB PO (21:58)
[2018-07-27] MEDS: PAROXETINE 20 MG TAB PO (21:58)
[2018-07-27] MEDS: traZODone 100 MG TAB PO (23:00)
[2018-07-28] MEDS: morphine 2 MG INJ IV ×3 (03:01→11:57)
[2018-07-28 06:38] LABS: ADD MAN DIFF? NO
[2018-07-28 06:42] LABS: BASOPHIL # 0.1 10^3/ul (0.0-0.1); BASOPHILS % 0.7 % (0.0-2.0); EOSINOPHILS # 0.5 10^3/ul (0.0-0.5); EOSINOPHILS % 5.3 % (0.0-7.0); HEMATOCRIT 42.4 % (37.0-47.0); HEMOGLOBIN 13.4 g/dl (12.0-16.0); LYMPHOCYTES # 2.8 10^3/ul (0.8-2.9); LYMPHOCYTES % 29.8 % (15.0-51.0); MEAN CORPUSCULAR HEMOGLOBIN 29.1 pg (29.0-33.0); MEAN CORPUSCULAR HGB CONC 31.6 g/dl (32.0-37.0); MEAN PLATELET VOLUME 10.2 fl (7.4-10.4); MONOCYTE # 0.7 10^3/ul (0.3-0.9); MONOCYTES % 7.7 % (0.0-11.0); NEUTROPHIL # 5.3 10^3/ul (1.6-7.5); NEUTROPHILS % 56.1 % (39.0-77.0); PLATELET COUNT 362 10^3/UL (140-415); RED BLOOD COUNT 4.61 10^6/ul (4.20-5.40); RED CELL DISTRIBUTION WIDTH 13.4 % (11.5-14.5)
[2018-07-28 06:42] LABS: WHITE BLOOD COUNT 9.5 10^3/ul (4.8-10.8)
[2018-07-28 07:21] LABS: ALANINE AMINOTRANSFERASE 25 IU/L (13-69); ALBUMIN/GLOBULIN RATIO 1.53; ALKALINE PHOSPHATASE 105 IU/L (42-121); ANION GAP 14 (5-13); ASPARTATE AMINO TRANSFERASE 24 IU/L (15-46); BILIRUBIN,INDIRECT 0.2 mg/dl (0-1.1); BILIRUBIN,TOTAL 0.2 mg/dl (0.2-1.3); BLOOD UREA NITROGEN 15 mg/dl (7-20); CALCIUM 9.5 mg/dl (8.4-10.2); CARBON DIOXIDE 25 mmol/L (21-31); CHLORIDE 100 mmol/L (97-110); CREATININE 0.61 mg/dl (0.44-1.00); GLUCOSE 332 mg/dl (70-220); MAGNESIUM 2.1 mg/dl (1.7-2.5); PHOSPHORUS 4.1 mg/dl (2.5-4.9); POTASSIUM 4.3 mmol/L (3.5-5.1); SODIUM 139 mmol/L (135-144); TOTAL PROTEIN 6.6 g/dl (6.1-8.1)
[2018-07-28] MEDS: INSULIN ASPART [NOVOLOG] 3 ML PEN SC ×7 (07:44→20:09)
[2018-07-28] MEDS: ACCU-CHEK XX ×4 (07:45→20:58)
[2018-07-28] MEDS: metFORMIN 500 MG TAB PO ×2 (07:59→17:28)
[2018-07-28] MEDS: DOCUSATE SODIUM 250 MG CAP PO (08:37)
[2018-07-28] MEDS: FAMOTIDINE 20 MG TAB PO (08:37)
[2018-07-28] MEDS: BISACODYL (EC) 5 MG TAB PO (08:37)
[2018-07-28] MEDS: PREGABALIN 25 MG CAP PO ×3 (08:37→20:48)
[2018-07-28] MEDS: ASPIRIN 81 MG TAB PO (08:38)
[2018-07-28] MEDS: GABAPENTIN 300 MG CAP PO ×3 (08:38→20:47)
[2018-07-28] MEDS: POLYETHYLENE GLYCOL 17 GM PACKET PO ×2 (08:38→20:57)
[2018-07-28] MEDS: TIOTROPIUM 18 MCG CAPSULE INHA DEV INH (08:38)
[2018-07-28] MEDS: MAGNESIUM HYDROXIDE 30ML CUP PO ×2 (08:38→20:57)
[2018-07-28] MEDS: ISOSORBIDE MONONITRATE(SR)60 MG TAB PO (08:39)
[2018-07-28] MEDS: ENOXAPARIN 40 MG/0.4 ML SYG SC (08:46)
[2018-07-28] MEDS: NYSTATIN 15 GM CR TOP ×3 (08:47→20:58)
[2018-07-28] MEDS: LIDOCAINE 5% PATCH TD (08:47)
[2018-07-28] MEDS: morphine (ER) 30 MG TAB PO ×2 (08:48→20:47)
[2018-07-28] MEDS: BUDESONIDE (NEB) 0.5MG/2ML AMP INH ×2 (09:33→20:13)
[2018-07-28] MEDS: ARFORMOTEROL TARTRATE 15MCG/2 ML AMP INH ×2 (09:33→20:13)
[2018-07-28] MEDS ORDERED: ALBUTEROL 0.083% (NEB) 2.5 MG/3 ML AMP NEB (14:00)
[2018-07-28] MEDS ORDERED: MINERAL OIL 133 ML ENEMA PR (14:00)
[2018-07-28] MEDS: KETOROLAC 30 MG INJ IV ×2 (14:41→20:00)
[2018-07-28] MEDS: PEG/ELECTROLYTES 4L BTL PO (15:41)
[2018-07-28] MEDS: ALPRAZOLAM 0.5 MG TAB PO (17:28)
[2018-07-28] MEDS: traZODone 100 MG TAB PO (20:46)
[2018-07-28] MEDS: PAROXETINE 20 MG TAB PO (20:46)
[2018-07-28] MEDS: ATORVASTATIN 40 MG TAB PO (20:47)
[2018-07-28] MEDS: SENNA/DOCUSATE NA (8.6MG/50MG) TAB PO (20:58)
== END 2018-07-28 21:15 | disposition left against medical advice (07) | DRG 291 ==
LOC: E/R 09:50 → TEL 11:46
PROVIDERS: Family Medicine
DX: I11.0 Hypertensive heart disease with heart failure (principal); J96.90 Respiratory failure, unspecified, unspecified whether with hypoxia or hypercapnia; J44.1 Chronic obstructive pulmonary disease with (acute) exacerbation; Z68.42 Body mass index [BMI] 45.0-49.9, adult; E11.40 Type 2 diabetes mellitus with diabetic neuropathy, unspecified; E11.65 Type 2 diabetes mellitus with hyperglycemia; E78.5 Hyperlipidemia, unspecified; E66.01 Morbid (severe) obesity due to excess calories; F41.9 Anxiety disorder, unspecified; F32.9 Major depressive disorder, single episode, unspecified; F60.3 Borderline personality disorder; F17.200 Nicotine dependence, unspecified, uncomplicated; I50.33 Acute on chronic diastolic (congestive) heart failure; K59.00 Constipation, unspecified; G89.29 Other chronic pain; M54.5 Low back pain; M48.00 Spinal stenosis, site unspecified; R62.7 Adult failure to thrive
CPT/HCPCS: 71045; 74018; 80053; 80307; 81003; 82550; 82553; 82947; 82962; 83036; 83735; 83880; 84100; 84484; 85025; 85610; 85730; 90686; 93005; 93306; 94640; 94664; 96374; 97116; 97162; 97530; 99285-25; G0378

== ENCOUNTER 2018-07-31 20:48 | Emergency (ER) | payer OTHER ==
[2018-07-31] MEDS: HYDROCODONE/APAP (10/325) TAB PO (21:03)
[2018-07-31] MEDS: FLUCONAZOLE 200 MG TAB PO (21:12)
[2018-07-31] MEDS: LOPERAMIDE HCL 1 MG/5 ML LIQUID (10 ML UD CUP) PO (21:24)
== END 2018-07-31 21:24 | disposition home or self-care (01) ==
LOC: E/R 20:48
DX: R10.84 Generalized abdominal pain (principal); R19.7 Diarrhea, unspecified; B49 Unspecified mycosis; I50.9 Heart failure, unspecified; J44.9 Chronic obstructive pulmonary disease, unspecified; E11.9 Type 2 diabetes mellitus without complications; J45.909 Unspecified asthma, uncomplicated; F17.210 Nicotine dependence, cigarettes, uncomplicated; Z79.82 Long term (current) use of aspirin; Z79.4 Long term (current) use of insulin
CPT/HCPCS: 99283; Z7502

== ENCOUNTER 2018-08-03 21:01 | Inpatient (IN) | payer OTHER ==
[2018-08-03 22:33] LABS: HEMATOCRIT 42.4 % (37.0-47.0); HEMOGLOBIN 13.6 g/dl (12.0-16.0); MEAN CORPUSCULAR HEMOGLOBIN 29.1 pg (29.0-33.0); MEAN CORPUSCULAR HGB CONC 32.1 g/dl (32.0-37.0); MEAN CORPUSCULAR VOLUME 90.6 fl (82.0-101.0); MEAN PLATELET VOLUME 9.8 fl (7.4-10.4); PLATELET COUNT 361 10^3/UL (140-415); RED BLOOD COUNT 4.68 10^6/ul (4.20-5.40); RED CELL DISTRIBUTION WIDTH 13.7 % (11.5-14.5)
[2018-08-03 22:33] LABS: WHITE BLOOD COUNT 12.5 10^3/ul (4.8-10.8)
[2018-08-03 22:35] LABS: POSITIVE DIFF @See below
[2018-08-03 22:36] LABS: ADD MAN DIFF? YES
[2018-08-03 22:50] LABS: ALANINE AMINOTRANSFERASE 23 IU/L (13-69); ALBUMIN 3.5 g/dl (3.3-4.9); ALKALINE PHOSPHATASE 112 IU/L (42-121); ANION GAP 13 (5-13); ASPARTATE AMINO TRANSFERASE 17 IU/L (15-46); BILIRUBIN,INDIRECT 0.1 mg/dl (0-1.1); BILIRUBIN,TOTAL 0.1 mg/dl (0.2-1.3); BLOOD UREA NITROGEN 22 mg/dl (7-20); CALCIUM 10.4 mg/dl (8.4-10.2); CARBON DIOXIDE 27 mmol/L (21-31); CHLORIDE 99 mmol/L (97-110); CREATININE 0.94 mg/dl (0.44-1.00); Estimated GFR > 60 mL/min (>60); GLUCOSE 237 mg/dl (70-220); SODIUM 139 mmol/L (135-144); TOTAL PROTEIN 6.4 g/dl (6.1-8.1)
[2018-08-03 23:02] LABS: B-TYPE NATRIURETIC PEPTIDE 38 PG/ML (0-125); TROPONIN-I < 0.012 ng/ml (0.000-0.120)
[2018-08-03 23:09] LABS: EOSINOPHILS % (M) 5 % (0-7); LYMPHOCYTES #M 3.6 10^3/ul (0.8-2.9); LYMPHOCYTES % (M) 29 % (15-51); MONOCYTE #M 0.7 10^3/ul (0.3-0.9); MONOCYTES % (M) 6 % (0-11); PLATELET ESTIMATE NORMAL; POLYCHROMASIA 1+ (0-0); SEGMENTED NEUTROPHILS (M) % 60 % (39-77); SMUDGE%M 4 % (0-0)
[2018-08-03] MEDS: ACETAMINOPHEN 325 MG TAB PO (23:29)
[2018-08-03] MEDS: NITROGLYCERIN 2% 1 GM OINT PKT TD (23:30)
[2018-08-03] MEDS: SOD CHLORIDE 0.9% 500 ML IV (23:30)
[2018-08-04] MEDS ORDERED: LOPERAMIDE 2 MG CAP PO (02:00)
[2018-08-04] MEDS ORDERED: ALPRAZOLAM 0.25 MG TAB PO (02:00)
[2018-08-04] MEDS ORDERED: ALBUTEROL 0.083% (NEB) 2.5 MG/3 ML AMP NEB (02:00)
[2018-08-04] MEDS: ACCU-CHEK XX (02:00)
[2018-08-04] MEDS ORDERED: NACL 0.9% 3 ML SYG IV (02:00)
[2018-08-04] MEDS ORDERED: GLUCOSE GEL 15 GRAM TUBE PO ×2 (02:30)
[2018-08-04] MEDS ORDERED: DEXTROSE 50% 50 ML SYRINGE IV ×2 (02:30)
[2018-08-04] MEDS ORDERED: GLUCOSE GEL 15 GRAM TUBE BUCCAL (02:30)
[2018-08-04] MEDS ORDERED: GLUCAGON 1 MG INJ IM (02:30)
[2018-08-04 06:09] LABS: TROPONIN-I < 0.012 ng/ml (0.000-0.120)
[2018-08-04] MEDS: ONDANSETRON 4 MG INJ IV (06:52)
[2018-08-04] MEDS: morphine 2 MG INJ IV ×4 (06:53→21:05)
[2018-08-04] MEDS: FAMOTIDINE 20 MG TAB PO ×2 (08:53→21:05)
[2018-08-04] MEDS: ISOSORBIDE MONONITRATE(SR)60 MG TAB PO (08:54)
[2018-08-04] MEDS: morphine (ER) 30 MG TAB PO ×2 (08:55→21:00)
[2018-08-04] MEDS: ASPIRIN 81 MG TAB PO (08:55)
[2018-08-04] MEDS: GABAPENTIN 300 MG CAP PO ×3 (08:56→21:06)
[2018-08-04] MEDS: HYDROCHLOROTHIAZIDE 25 MG TAB PO (08:56)
[2018-08-04] MEDS: FUROSEMIDE 20 MG TAB PO (08:57)
[2018-08-04] MEDS: TIOTROPIUM 18 MCG CAPSULE INHA DEV INH (10:08)
[2018-08-04] MEDS: INSULIN ASPART [NOVOLOG] 3 ML PEN SC ×3 (10:46→17:19)
[2018-08-04 12:57] LABS: TROPONIN-I < 0.012 ng/ml (0.000-0.120)
[2018-08-04 20:13] LABS: PHOSPHORUS 4.4 mg/dl (2.5-4.9)
[2018-08-04] MEDS: METOPROLOL 25 MG TAB PO (21:06)
[2018-08-04] MEDS: traZODone 100 MG TAB PO (21:06)
[2018-08-04] MEDS: ATORVASTATIN 40 MG TAB PO (21:06)
[2018-08-04] MEDS: PAROXETINE 20 MG TAB PO (21:07)
[2018-08-05] MEDS: ACCU-CHEK XX (01:15)
[2018-08-05] MEDS: morphine 2 MG INJ IV ×6 (01:16→22:32)
[2018-08-05 05:59] LABS: ADD MAN DIFF? NO
[2018-08-05 06:01] LABS: BASOPHIL # 0.1 10^3/ul (0.0-0.1); BASOPHILS % 0.6 % (0.0-2.0); EOSINOPHILS # 0.4 10^3/ul (0.0-0.5); EOSINOPHILS % 3.7 % (0.0-7.0); HEMATOCRIT 40.9 % (37.0-47.0); LYMPHOCYTES # 3.4 10^3/ul (0.8-2.9); LYMPHOCYTES % 31.1 % (15.0-51.0); MEAN CORPUSCULAR HEMOGLOBIN 29.1 pg (29.0-33.0); MEAN CORPUSCULAR HGB CONC 31.8 g/dl (32.0-37.0); MEAN CORPUSCULAR VOLUME 91.5 fl (82.0-101.0); MEAN PLATELET VOLUME 10.3 fl (7.4-10.4); MONOCYTE # 0.8 10^3/ul (0.3-0.9); MONOCYTES % 7.5 % (0.0-11.0); NEUTROPHIL # 6.2 10^3/ul (1.6-7.5); NEUTROPHILS % 56.9 % (39.0-77.0); PLATELET COUNT 337 10^3/UL (140-415); RED BLOOD COUNT 4.47 10^6/ul (4.20-5.40); RED CELL DISTRIBUTION WIDTH 13.9 % (11.5-14.5)
[2018-08-05 06:01] LABS: WHITE BLOOD COUNT 10.9 10^3/ul (4.8-10.8)
[2018-08-05 06:23] LABS: HEMOGLOBIN A1C 9.5 % (0-5.9)
[2018-08-05 06:28] LABS: ALANINE AMINOTRANSFERASE 21 IU/L (13-69); ALBUMIN 3.9 g/dl (3.3-4.9); ALBUMIN/GLOBULIN RATIO 1.85; ALKALINE PHOSPHATASE 85 IU/L (42-121); ANION GAP 13 (5-13); ASPARTATE AMINO TRANSFERASE 17 IU/L (15-46); BLOOD UREA NITROGEN 17 mg/dl (7-20); CALCIUM 9.5 mg/dl (8.4-10.2); CARBON DIOXIDE 24 mmol/L (21-31); CHLORIDE 101 mmol/L (97-110); CREATININE 0.78 mg/dl (0.44-1.00); Estimated GFR > 60 mL/min (>60); GLUCOSE 230 mg/dl (70-220); POTASSIUM 3.9 mmol/L (3.5-5.1); SODIUM 138 mmol/L (135-144)
[2018-08-05 07:12] LABS: MAGNESIUM 1.4 mg/dl (1.7-2.5)
[2018-08-05] MEDS: GABAPENTIN 300 MG CAP PO ×3 (08:41→21:13)
[2018-08-05] MEDS: ISOSORBIDE MONONITRATE(SR)60 MG TAB PO (08:42)
[2018-08-05] MEDS: FAMOTIDINE 20 MG TAB PO ×2 (08:42→21:04)
[2018-08-05] MEDS: ASPIRIN 81 MG TAB PO (08:42)
[2018-08-05] MEDS: FUROSEMIDE 20 MG TAB PO (08:42)
[2018-08-05] MEDS: METOPROLOL 25 MG TAB PO ×2 (08:43→21:04)
[2018-08-05] MEDS: TIOTROPIUM 18 MCG CAPSULE INHA DEV INH (08:43)
[2018-08-05] MEDS: morphine (ER) 30 MG TAB PO ×2 (08:43→21:04)
[2018-08-05] MEDS: INSULIN ASPART [NOVOLOG] 3 ML PEN SC ×3 (08:52→17:22)
[2018-08-05] MEDS: HYDROCODONE/APAP (10/325) TAB PO (11:41)
[2018-08-05] MEDS: MAGNESIUM SULFATE 2 GM/50 ML 50 ML IVPB (11:46)
[2018-08-05] MEDS: METOPROLOL 5 MG INJ IV ×2 (15:40→16:40)
[2018-08-05] MEDS: traZODone 100 MG TAB PO (21:03)
[2018-08-05] MEDS: ATORVASTATIN 40 MG TAB PO (21:03)
[2018-08-05] MEDS: PAROXETINE 20 MG TAB PO (21:04)
[2018-08-06] MEDS: ACCU-CHEK XX (02:00)
[2018-08-06] MEDS: morphine 2 MG INJ IV ×2 (02:29→06:29)
[2018-08-06] MEDS: ALPRAZOLAM 0.5 MG TAB PO (06:08)
[2018-08-06] MEDS: ASPIRIN 81 MG TAB PO (08:05)
[2018-08-06] MEDS: METOPROLOL 25 MG TAB PO (08:06)
[2018-08-06] MEDS: ISOSORBIDE MONONITRATE(SR)60 MG TAB PO (08:06)
[2018-08-06] MEDS: FAMOTIDINE 20 MG TAB PO (08:06)
[2018-08-06] MEDS: GABAPENTIN 300 MG CAP PO (08:07)
[2018-08-06] MEDS: FUROSEMIDE 20 MG TAB PO (08:07)
[2018-08-06] MEDS: morphine (ER) 30 MG TAB PO (08:13)
[2018-08-06] MEDS: INSULIN ASPART [NOVOLOG] 3 ML PEN SC (08:19)
[2018-08-06] MEDS: TIOTROPIUM 18 MCG CAPSULE INHA DEV INH (09:00)
[2018-08-06] MEDS: NITROGLYCERIN AEROSOL (4.9 GM) (09:55)
[2018-08-06] MEDS: IOHEXOL 100 ML (10:00)
[2018-08-06] MEDS: SOD CHLORIDE 0.9% 100 ML (10:00)
== END 2018-08-06 11:15 | disposition home or self-care (01) | DRG 313 ==
LOC: E/R 21:01 → 6WM 08-04 04:52
DX: R07.9 Chest pain, unspecified (principal); I47.1 Supraventricular tachycardia; Z68.41 Body mass index [BMI] 40.0-44.9, adult; E11.9 Type 2 diabetes mellitus without complications; I10 Essential (primary) hypertension; J44.9 Chronic obstructive pulmonary disease, unspecified; E78.5 Hyperlipidemia, unspecified; E11.40 Type 2 diabetes mellitus with diabetic neuropathy, unspecified; F32.9 Major depressive disorder, single episode, unspecified; E66.01 Morbid (severe) obesity due to excess calories; F17.200 Nicotine dependence, unspecified, uncomplicated; M48.00 Spinal stenosis, site unspecified; Z79.4 Long term (current) use of insulin
CPT/HCPCS: 71045; 75574; 80053; 82962; 83036; 83735; 83880; 84100; 84443; 84484; 85025; 93005

== ENCOUNTER 2018-09-01 21:59 | Emergency (ER) | payer OTHER ==
[2018-09-02 00:13] LABS: HEMATOCRIT 42.9 % (37.0-47.0); HEMOGLOBIN 14.1 g/dl (12.0-16.0); MEAN CORPUSCULAR HEMOGLOBIN 29.1 pg (29.0-33.0); MEAN CORPUSCULAR HGB CONC 32.9 g/dl (32.0-37.0); MEAN CORPUSCULAR VOLUME 88.6 fl (82.0-101.0); MEAN PLATELET VOLUME 9.7 fl (7.4-10.4); PLATELET COUNT 363 10^3/UL (140-415); RED BLOOD COUNT 4.84 10^6/ul (4.20-5.40); RED CELL DISTRIBUTION WIDTH 13.7 % (11.5-14.5)
[2018-09-02 00:13] LABS: WHITE BLOOD COUNT 14.1 10^3/ul (4.8-10.8)
[2018-09-02 00:24] LABS: ADD MAN DIFF? YES; POSITIVE DIFF @See below
[2018-09-02 00:31] LABS: ALANINE AMINOTRANSFERASE 25 IU/L (13-69); ALBUMIN 4.1 g/dl (3.3-4.9); ALBUMIN/GLOBULIN RATIO 1.64; ALKALINE PHOSPHATASE 89 IU/L (42-121); ANION GAP 11 (5-13); ASPARTATE AMINO TRANSFERASE 21 IU/L (15-46); BILIRUBIN,INDIRECT 0.1 mg/dl (0-1.1); BILIRUBIN,TOTAL 0.1 mg/dl (0.2-1.3); BLOOD UREA NITROGEN 22 mg/dl (7-20); CARBON DIOXIDE 28 mmol/L (21-31); CHLORIDE 97 mmol/L (97-110); CREATININE 0.67 mg/dl (0.44-1.00); Estimated GFR > 60 mL/min (>60); GLUCOSE 201 mg/dl (70-220); SODIUM 136 mmol/L (135-144); TOTAL PROTEIN 6.6 g/dl (6.1-8.1)
[2018-09-02 00:43] LABS: B-TYPE NATRIURETIC PEPTIDE 54 PG/ML (0-125); TROPONIN-I < 0.012 ng/ml (0.000-0.120)
[2018-09-02] MEDS: morphine 4 MG/ML VIAL IV (00:54)
[2018-09-02] MEDS: ONDANSETRON 4 MG INJ IV (00:54)
[2018-09-02] MEDS: KETOROLAC 30 MG INJ IV (00:54)
[2018-09-02 01:28] LABS: ANISOCYTOSIS 1+ (0-0); EOSINOPHILS % (M) 1 % (0-7); LYMPHOCYTES % (M) 29 % (15-51); MONOCYTE #M 0.1 10^3/ul (0.3-0.9); MONOCYTES % (M) 1 % (0-11); PLATELET ESTIMATE NORMAL; POIKILOCYTOSIS 1+ (0-0); POLYCHROMASIA 2+ (0-0); SEGMENTED NEUTROPHILS (M) % 69 % (39-77); SMUDGE%M 9 % (0-0)
== END 2018-09-02 01:26 | disposition home or self-care (01) ==
LOC: E/R 09-02 01:26
DX: E11.51 Type 2 diabetes mellitus with diabetic peripheral angiopathy without gangrene (principal); I11.0 Hypertensive heart disease with heart failure; I50.9 Heart failure, unspecified; J44.9 Chronic obstructive pulmonary disease, unspecified; J45.909 Unspecified asthma, uncomplicated; F17.210 Nicotine dependence, cigarettes, uncomplicated; Z79.82 Long term (current) use of aspirin; Z79.4 Long term (current) use of insulin
CPT/HCPCS: 36415; 71045; 80053; 83880; 84484; 85025; 93005; 93970; 96374; 96375; 99285-25

== ENCOUNTER 2018-09-30 21:40 | Inpatient (IN) | payer OTHER ==
[2018-10-01 01:57] LABS: ADD MAN DIFF? NO
[2018-10-01] MEDS: morphine 4 MG/ML VIAL IV (01:59)
[2018-10-01] MEDS: ONDANSETRON 4 MG INJ IV (01:59)
[2018-10-01] MEDS: SOD CHLORIDE 0.9% 1,000 ML IV ×4 (02:00→23:33)
[2018-10-01 02:03] LABS: WHITE BLOOD COUNT 13.2 10^3/ul (4.8-10.8)
[2018-10-01 02:03] LABS: BASOPHIL # 0.1 10^3/ul (0.0-0.1); BASOPHILS % 0.7 % (0.0-2.0); EOSINOPHILS # 0.5 10^3/ul (0.0-0.5); EOSINOPHILS % 3.6 % (0.0-7.0); HEMATOCRIT 41.6 % (37.0-47.0); HEMOGLOBIN 13.9 g/dl (12.0-16.0); LYMPHOCYTES # 4.2 10^3/ul (0.8-2.9); LYMPHOCYTES % 31.6 % (15.0-51.0); MEAN CORPUSCULAR HEMOGLOBIN 28.6 pg (29.0-33.0); MEAN CORPUSCULAR HGB CONC 33.4 g/dl (32.0-37.0); MEAN CORPUSCULAR VOLUME 85.6 fl (82.0-101.0); MEAN PLATELET VOLUME 10.3 fl (7.4-10.4); MONOCYTE # 0.9 10^3/ul (0.3-0.9); MONOCYTES % 6.7 % (0.0-11.0); NEUTROPHIL # 7.5 10^3/ul (1.6-7.5); NEUTROPHILS % 56.9 % (39.0-77.0); PLATELET COUNT 373 10^3/UL (140-415); RED BLOOD COUNT 4.86 10^6/ul (4.20-5.40); RED CELL DISTRIBUTION WIDTH 13.9 % (11.5-14.5)
[2018-10-01 02:16] LABS: ADD UMIC YES; UR ASCORBIC ACID NEGATIVE (NEGATIVE); UR BILIRUBIN (Dip) NEGATIVE (NEGATIVE); UR BLOOD (Dip) 1+ mg/dL (NEGATIVE); UR CLARITY CLEAR (CLEAR); UR COLOR YELLOW (YELLOW); UR GLUCOSE (Dip) 3+ mg/dL (NEGATIVE); UR KETONES (Dip) NEGATIVE (NEGATIVE); UR LEUKOCYTE ESTERASE (Dip) NEGATIVE Leu/ul (NEGATIVE); UR NITRITE (Dip) NEGATIVE (NEGATIVE); UR RBC 3 /HPF (0-5); UR SPECIFIC GRAVITY (Dip) 1.029 (1.003-1.030); UR SQUAMOUS EPITHELIAL CELL FEW /HPF (FEW); UR TOTAL PROTEIN (Dip) NEGATIVE (NEGATIVE); UR UROBILINOGEN (Dip) NEGATIVE (NEGATIVE); UR WBC 1 /HPF (0-5)
[2018-10-01 02:20] LABS: ALANINE AMINOTRANSFERASE 22 IU/L (13-69); ALBUMIN 4.1 g/dl (3.3-4.9); ALBUMIN/GLOBULIN RATIO 1.78; ALKALINE PHOSPHATASE 131 IU/L (42-121); ANION GAP 15 (5-13); ASPARTATE AMINO TRANSFERASE 15 IU/L (15-46); BILIRUBIN,INDIRECT 0.1 mg/dl (0-1.1); BILIRUBIN,TOTAL 0.1 mg/dl (0.2-1.3); BLOOD UREA NITROGEN 25 mg/dl (7-20); CALCIUM 9.8 mg/dl (8.4-10.2); CARBON DIOXIDE 31 mmol/L (21-31); CHLORIDE 89 mmol/L (97-110); CREATININE 0.92 mg/dl (0.44-1.00); Estimated GFR > 60 mL/min (>60); POTASSIUM 3.1 mmol/L (3.5-5.1); SODIUM 135 mmol/L (135-144); TOTAL PROTEIN 6.4 g/dl (6.1-8.1)
[2018-10-01 02:31] LABS: GLUCOSE 403 mg/dl (70-220)
[2018-10-01 02:33] LABS: LACTIC ACID 3.6 mmol/L (0.5-2.0)
[2018-10-01] MEDS ORDERED: NS + KCL 40 MEQ 1,000 ML IV ×2 (02:36→03:00)
[2018-10-01] MEDS ORDERED: INSULIN REGULAR, HUMAN 100 UNIT in SOD CHLORIDE 0.9% 99 ML IV (03:00)
[2018-10-01] MEDS: INSULIN REGULAR, HUMAN 100 UNIT/1 ML 3ML VIAL SC (03:42)
[2018-10-01] MEDS: POTASSIUM CHLORIDE 40 MEQ in SOD CHLORIDE 0.9% 1,000 ML IV ×3 (03:44→23:21)
[2018-10-01] MEDS ORDERED: GLUCOSE GEL 15 GRAM TUBE PO ×2 (04:00)
[2018-10-01] MEDS ORDERED: GLUCAGON 1 MG INJ IM (04:00)
[2018-10-01] MEDS: IOHEXOL 14.3 MG(I)/ML (ADULT) BTL PO (04:00)
[2018-10-01] MEDS ORDERED: GLUCOSE GEL 15 GRAM TUBE BUCCAL (04:00)
[2018-10-01] MEDS ORDERED: NACL 0.9% 3 ML SYG IV (04:00)
[2018-10-01] MEDS ORDERED: DEXTROSE 50% 50 ML SYRINGE IV ×2 (04:00)
[2018-10-01] MEDS ORDERED: ACETAMINOPHEN 325 MG TAB PO (04:00)
[2018-10-01] MEDS ORDERED: ONDANSETRON 4 MG INJ IV (04:00)
[2018-10-01] MEDS: SOD CHLORIDE 0.9% 100 ML (04:11)
[2018-10-01] MEDS: IOHEXOL 300MG/ML 150 ML BTL (04:11)
[2018-10-01] MEDS: HYDROmorphONE 0.5 MG/0.5 ML SYG IV ×5 (04:21→20:30)
[2018-10-01] MEDS: INSULIN ASPART [NOVOLOG] 3 ML PEN SC ×7 (05:39→21:46)
[2018-10-01] MEDS: PANTOPRAZOLE 40 MG INJ IV (06:31)
[2018-10-01] MEDS ORDERED: INSULIN REGULAR HUMAN 45 UNIT SQ (07:30)
[2018-10-01] MEDS: GABAPENTIN 300 MG CAP PO ×3 (08:59→20:47)
[2018-10-01] MEDS: ASPIRIN 81 MG TAB PO (09:08)
[2018-10-01] MEDS: ISOSORBIDE MONONITRATE(SR)60 MG TAB PO (09:09)
[2018-10-01] MEDS: METOPROLOL 25 MG TAB PO ×2 (09:10→20:48)
[2018-10-01] MEDS: ENOXAPARIN 40 MG/0.4 ML SYG SC (09:12)
[2018-10-01 10:16] LABS: LACTIC ACID 1.3 mmol/L (0.5-2.0)
[2018-10-01] MEDS: MAGNESIUM HYDROXIDE 30ML CUP PO (14:21)
[2018-10-01] MEDS: LACTULOSE 30ML CUP PO (14:21)
[2018-10-01] MEDS: HYOSCYAMINE 0.125 MG TAB PO (14:24)
[2018-10-01 15:34] LABS: LACTIC ACID 2.3 mmol/L (0.5-2.0)
[2018-10-01 15:59] LABS: HEPATITIS B SURFACE ANTIGEN NEGATIVE (NEGATIVE)
[2018-10-01 16:17] LABS: HEPATITIS C VIRAL ANTIBODY NEGATIVE (NEGATIVE)
[2018-10-01] MEDS: FLUTICASONE/VILANTEROL 100-25 INH (17:25)
[2018-10-01] MEDS: TIOTROPIUM 18 MCG CAPSULE INHA DEV INH (17:26)
[2018-10-01] MEDS ORDERED: ACCU-CHEK XX (17:30)
[2018-10-01] MEDS: ACCU-CHEK XX ×2 (18:09→21:00)
[2018-10-01] MEDS: metFORMIN 500 MG TAB PO (18:11)
[2018-10-01] MEDS: PAROXETINE 20 MG TAB PO (20:47)
[2018-10-01] MEDS: traZODone 100 MG TAB PO (20:47)
[2018-10-01] MEDS: ATORVASTATIN 40 MG TAB PO (20:48)
[2018-10-01 22:14] LABS: LACTIC ACID 2.4 mmol/L (0.5-2.0)
[2018-10-01] MEDS ORDERED: DEXAMETHASONE 1 MG TAB PO (23:15)
[2018-10-02] MEDS: HYDROmorphONE 0.5 MG/0.5 ML SYG IV ×6 (01:32→22:36)
[2018-10-02] MEDS ORDERED: ACCU-CHEK XX (02:00)
[2018-10-02] MEDS: INSULIN ASPART [NOVOLOG] 3 ML PEN SC ×8 (02:38→20:28)
[2018-10-02] MEDS: PANTOPRAZOLE 40 MG INJ IV (05:57)
[2018-10-02 06:08] LABS: ADD MAN DIFF? NO
[2018-10-02] MEDS: POTASSIUM CHLORIDE 40 MEQ in SOD CHLORIDE 0.9% 1,000 ML IV ×3 (06:08→19:21)
[2018-10-02 06:18] LABS: WHITE BLOOD COUNT 8.5 10^3/ul (4.8-10.8)
[2018-10-02 06:18] LABS: BASOPHIL # 0.1 10^3/ul (0.0-0.1); BASOPHILS % 0.7 % (0.0-2.0); EOSINOPHILS # 0.4 10^3/ul (0.0-0.5); EOSINOPHILS % 4.5 % (0.0-7.0); HEMATOCRIT 41.5 % (37.0-47.0); HEMOGLOBIN 13.5 g/dl (12.0-16.0); LYMPHOCYTES # 3.1 10^3/ul (0.8-2.9); LYMPHOCYTES % 36.1 % (15.0-51.0); MEAN CORPUSCULAR HEMOGLOBIN 28.6 pg (29.0-33.0); MEAN CORPUSCULAR HGB CONC 32.5 g/dl (32.0-37.0); MEAN CORPUSCULAR VOLUME 87.9 fl (82.0-101.0); MEAN PLATELET VOLUME 10.2 fl (7.4-10.4); MONOCYTE # 0.6 10^3/ul (0.3-0.9); MONOCYTES % 7.2 % (0.0-11.0); NEUTROPHIL # 4.4 10^3/ul (1.6-7.5); NEUTROPHILS % 51.1 % (39.0-77.0); PLATELET COUNT 353 10^3/UL (140-415); RED BLOOD COUNT 4.72 10^6/ul (4.20-5.40); RED CELL DISTRIBUTION WIDTH 14.4 % (11.5-14.5)
[2018-10-02 06:48] LABS: LACTIC ACID 3.4 mmol/L (0.5-2.0)
[2018-10-02 07:00] LABS: ALANINE AMINOTRANSFERASE 28 IU/L (13-69); ALBUMIN 3.5 g/dl (3.3-4.9); ALBUMIN/GLOBULIN RATIO 1.52; ALKALINE PHOSPHATASE 89 IU/L (42-121); ANION GAP 13 (5-13); ASPARTATE AMINO TRANSFERASE 16 IU/L (15-46); BLOOD UREA NITROGEN 14 mg/dl (7-20); CARBON DIOXIDE 26 mmol/L (21-31); CHLORIDE 98 mmol/L (97-110); CREATININE 0.57 mg/dl (0.44-1.00); Estimated GFR > 60 mL/min (>60); POTASSIUM 4.8 mmol/L (3.5-5.1); SODIUM 137 mmol/L (135-144); TOTAL PROTEIN 5.8 g/dl (6.1-8.1)
[2018-10-02] MEDS: ACCU-CHEK XX ×4 (07:00→21:00)
[2018-10-02 07:06] LABS: GLUCOSE 404 mg/dl (70-220)
[2018-10-02] MEDS: SOD CHLORIDE 0.9% 500 ML IV (07:09)
[2018-10-02] MEDS ORDERED: INSULIN GLARGINE [LANTus] (100 UNITS/ML) SYG SC (08:00)
[2018-10-02] MEDS: GABAPENTIN 300 MG CAP PO ×3 (08:23→20:22)
[2018-10-02] MEDS: TIOTROPIUM 18 MCG CAPSULE INHA DEV INH (08:24)
[2018-10-02] MEDS: ASPIRIN 81 MG TAB PO (08:24)
[2018-10-02] MEDS: ISOSORBIDE MONONITRATE(SR)30 MG TAB PO (08:24)
[2018-10-02] MEDS: LINAGLIPTIN 5 MG TABLET PO (08:24)
[2018-10-02] MEDS: EMPAGLIFLOZIN 10 MG TABLET PO (08:25)
[2018-10-02] MEDS: METOPROLOL 25 MG TAB PO ×2 (08:25→20:21)
[2018-10-02] MEDS: metFORMIN 500 MG TAB PO (08:25)
[2018-10-02] MEDS: INSULIN GLARGINE [LANTus] (100 UNITS/ML) SYG SC ×3 (08:45→20:27)
[2018-10-02] MEDS: ENOXAPARIN 40 MG/0.4 ML SYG SC (08:46)
[2018-10-02] MEDS: FLUTICASONE/VILANTEROL 100-25 INH (09:10)
[2018-10-02] MEDS: SOD CHLORIDE 0.9% 1,000 ML IV ×3 (09:33→23:37)
[2018-10-02 10:58] LABS: LACTIC ACID 2.7 mmol/L (0.5-2.0)
[2018-10-02] MEDS: CEFTRIAXONE 1 GM/50 ML (PMX) 50 ML IVPB (13:05)
[2018-10-02] MEDS ORDERED: VERAPAMIL (SR) 120 MG TAB PO (15:00)
[2018-10-02] MEDS: BROMOCRIPTINE 2.5 MG TAB PO (16:35)
[2018-10-02] MEDS: LIDOCAINE 5% PATCH TD (16:37)
[2018-10-02] MEDS: VERAPAMIL (SR) 240 MG TAB PO (17:52)
[2018-10-02] MEDS: ATORVASTATIN 40 MG TAB PO (20:22)
[2018-10-02] MEDS: PAROXETINE 20 MG TAB PO (20:22)
[2018-10-02] MEDS: traZODone 100 MG TAB PO (20:22)
[2018-10-02] MEDS: oxyCODONE 5 MG TAB PO (20:35)
[2018-10-02] MEDS: BETAMETHASONE/CLOTRIMAZOLE 15 GM CR TOP ×2 (21:00→23:36)
[2018-10-02] MEDS: DEXAMETHASONE 1 MG TAB PO (23:34)
[2018-10-02] MEDS: ALPRAZOLAM 0.25 MG TAB PO (23:55)
[2018-10-03] MEDS: oxyCODONE 5 MG TAB PO ×5 (00:36→22:08)
[2018-10-03] MEDS: ACCUCHECK AT 2AM (Patients on SS coverage) XX (02:00)
[2018-10-03] MEDS: POTASSIUM CHLORIDE 40 MEQ in SOD CHLORIDE 0.9% 1,000 ML IV ×2 (02:08→15:21)
[2018-10-03] MEDS: SOD CHLORIDE 0.9% 1,000 ML IV ×3 (02:09→22:08)
[2018-10-03] MEDS: HYDROmorphONE 0.5 MG/0.5 ML SYG IV ×6 (02:36→22:11)
[2018-10-03] MEDS: PANTOPRAZOLE (EC) 40 MG TAB PO (05:03)
[2018-10-03] MEDS ORDERED: INSULIN ASPART [NOVOLOG] 3 ML PEN SC (07:20)
[2018-10-03 08:19] LABS: ADD MAN DIFF? NO
[2018-10-03 08:30] LABS: WHITE BLOOD COUNT 7.9 10^3/ul (4.8-10.8)
[2018-10-03 08:30] LABS: BASOPHIL # 0.1 10^3/ul (0.0-0.1); BASOPHILS % 0.8 % (0.0-2.0); EOSINOPHILS # 0.3 10^3/ul (0.0-0.5); EOSINOPHILS % 3.2 % (0.0-7.0); HEMATOCRIT 42.8 % (37.0-47.0); HEMOGLOBIN 13.6 g/dl (12.0-16.0); LYMPHOCYTES # 1.9 10^3/ul (0.8-2.9); LYMPHOCYTES % 24.3 % (15.0-51.0); MEAN CORPUSCULAR HEMOGLOBIN 28.7 pg (29.0-33.0); MEAN CORPUSCULAR HGB CONC 31.8 g/dl (32.0-37.0); MEAN CORPUSCULAR VOLUME 90.3 fl (82.0-101.0); MEAN PLATELET VOLUME 10.3 fl (7.4-10.4); MONOCYTE # 0.5 10^3/ul (0.3-0.9); MONOCYTES % 6.7 % (0.0-11.0); NEUTROPHIL # 5.1 10^3/ul (1.6-7.5); NEUTROPHILS % 64.7 % (39.0-77.0); PLATELET COUNT 328 10^3/UL (140-415); RED BLOOD COUNT 4.74 10^6/ul (4.20-5.40); RED CELL DISTRIBUTION WIDTH 14.3 % (11.5-14.5)
[2018-10-03] MEDS: ACCU-CHEK XX ×4 (08:50→21:00)
[2018-10-03] MEDS: TIOTROPIUM 18 MCG CAPSULE INHA DEV INH (09:02)
[2018-10-03] MEDS: BROMOCRIPTINE 2.5 MG TAB PO (09:02)
[2018-10-03] MEDS: GABAPENTIN 300 MG CAP PO ×3 (09:02→20:53)
[2018-10-03] MEDS: VERAPAMIL (SR) 240 MG TAB PO (09:03)
[2018-10-03] MEDS: ISOSORBIDE MONONITRATE(SR)30 MG TAB PO (09:03)
[2018-10-03] MEDS: ASPIRIN 81 MG TAB PO (09:03)
[2018-10-03] MEDS: EMPAGLIFLOZIN 10 MG TABLET PO (09:04)
[2018-10-03] MEDS: METOPROLOL 25 MG TAB PO ×2 (09:04→20:57)
[2018-10-03 09:09] LABS: ANION GAP 11 (5-13); BLOOD UREA NITROGEN 14 mg/dl (7-20); CALCIUM 9.3 mg/dl (8.4-10.2); CARBON DIOXIDE 26 mmol/L (21-31); CHLORIDE 100 mmol/L (97-110); CREATININE 0.64 mg/dl (0.44-1.00); Estimated GFR > 60 mL/min (>60); GLUCOSE 382 mg/dl (70-220); POTASSIUM 4.9 mmol/L (3.5-5.1); SODIUM 137 mmol/L (135-144)
[2018-10-03] MEDS: INSULIN GLARGINE [LANTus] (100 UNITS/ML) SYG SC ×3 (09:09→20:50)
[2018-10-03] MEDS: INSULIN ASPART [NOVOLOG] 3 ML PEN SC ×2 (09:10→17:55)
[2018-10-03] MEDS: Insulin NOVOLOG SS MODERATE Algorithm (SS with meals and bedtime) SC ×4 (09:11→21:00)
[2018-10-03] MEDS: ENOXAPARIN 40 MG/0.4 ML SYG SC (09:12)
[2018-10-03] MEDS: LIDOCAINE 5% PATCH TD (09:13)
[2018-10-03] MEDS: BETAMETHASONE/CLOTRIMAZOLE 15 GM CR TOP ×2 (09:13→21:02)
[2018-10-03] MEDS: FLUTICASONE/VILANTEROL 100-25 INH (09:18)
[2018-10-03] MEDS: LINAGLIPTIN 5 MG TABLET PO (10:17)
[2018-10-03] MEDS: CEFTRIAXONE 1 GM/50 ML (PMX) 50 ML IVPB (12:44)
[2018-10-03 19:06] LABS: NIL 0.04 IU/mL; QUANTIFERON(R)-TB GOLD NEGATIVE (NEGATIVE)
[2018-10-03] MEDS: PAROXETINE 20 MG TAB PO (20:53)
[2018-10-03] MEDS: ATORVASTATIN 40 MG TAB PO (20:54)
[2018-10-03] MEDS: traZODone 100 MG TAB PO (20:54)
[2018-10-04] MEDS: POTASSIUM CHLORIDE 40 MEQ in SOD CHLORIDE 0.9% 1,000 ML IV ×4 (01:21→22:32)
[2018-10-04] MEDS: ACCUCHECK AT 2AM (Patients on SS coverage) XX (02:00)
[2018-10-04] MEDS: HYDROmorphONE 0.5 MG/0.5 ML SYG IV ×6 (02:21→23:05)
[2018-10-04] MEDS: INSULIN ASPART [NOVOLOG] 3 ML PEN SC ×4 (02:37→18:02)
[2018-10-04] MEDS: oxyCODONE 5 MG TAB PO ×4 (04:48→21:08)
[2018-10-04] MEDS: PANTOPRAZOLE (EC) 40 MG TAB PO ×2 (06:24→21:08)
[2018-10-04] MEDS: ACCU-CHEK XX ×4 (08:30→21:11)
[2018-10-04] MEDS: ISOSORBIDE MONONITRATE(SR)30 MG TAB PO (09:00)
[2018-10-04] MEDS: SOD CHLORIDE 0.9% 1,000 ML IV ×2 (09:05→21:17)
[2018-10-04] MEDS: TIOTROPIUM 18 MCG CAPSULE INHA DEV INH (09:10)
[2018-10-04] MEDS: BROMOCRIPTINE 2.5 MG TAB PO (09:10)
[2018-10-04] MEDS: FLUTICASONE/VILANTEROL 100-25 INH (09:11)
[2018-10-04] MEDS: EMPAGLIFLOZIN 10 MG TABLET PO (09:11)
[2018-10-04] MEDS: GABAPENTIN 300 MG CAP PO ×3 (09:11→21:07)
[2018-10-04] MEDS: VERAPAMIL (SR) 240 MG TAB PO (09:12)
[2018-10-04] MEDS: METOPROLOL 25 MG TAB PO ×2 (09:12→21:08)
[2018-10-04] MEDS: ASPIRIN 81 MG TAB PO (09:12)
[2018-10-04] MEDS: LINAGLIPTIN 5 MG TABLET PO (09:12)
[2018-10-04] MEDS: ENOXAPARIN 40 MG/0.4 ML SYG SC (09:13)
[2018-10-04] MEDS: LIDOCAINE 5% PATCH TD (09:15)
[2018-10-04] MEDS: BETAMETHASONE/CLOTRIMAZOLE 15 GM CR TOP ×2 (09:15→21:12)
[2018-10-04] MEDS: INSULIN GLARGINE [LANTus] (100 UNITS/ML) SYG SC ×2 (09:17→21:04)
[2018-10-04] MEDS: Insulin NOVOLOG SS MODERATE Algorithm (SS with meals and bedtime) SC ×4 (09:19→21:00)
[2018-10-04] MEDS: metFORMIN 500 MG TAB PO ×2 (11:00→18:00)
[2018-10-04] MEDS: BISMUTH SUBSALICYLATE 240 ML BTL PO ×4 (12:51→21:09)
[2018-10-04] MEDS: AMOXICILLIN 500 MG CAP PO ×2 (12:53→21:06)
[2018-10-04] MEDS: CLARITHROMYCIN 500 MG TAB PO ×2 (12:54→21:06)
[2018-10-04] MEDS: CEFTRIAXONE 1 GM/50 ML (PMX) 50 ML IVPB (12:55)
[2018-10-04] MEDS: FLUCONAZOLE 150 MG TAB PO (14:31)
[2018-10-04] MEDS: PAROXETINE 20 MG TAB PO (21:07)
[2018-10-04] MEDS: traZODone 100 MG TAB PO (21:07)
[2018-10-04] MEDS: ATORVASTATIN 40 MG TAB PO (21:07)
[2018-10-05] MEDS: ACCUCHECK AT 2AM (Patients on SS coverage) XX (01:18)
[2018-10-05] MEDS: HYDROmorphONE 0.5 MG/0.5 ML SYG IV ×3 (03:36→11:15)
[2018-10-05] MEDS: oxyCODONE 5 MG TAB PO ×2 (05:56→10:14)
[2018-10-05] MEDS: ACCU-CHEK XX ×2 (08:31→12:51)
[2018-10-05] MEDS: SOD CHLORIDE 0.9% 1,000 ML IV (08:31)
[2018-10-05] MEDS: metFORMIN 500 MG TAB PO (08:34)
[2018-10-05] MEDS: CLARITHROMYCIN 500 MG TAB PO (08:34)
[2018-10-05] MEDS: AMOXICILLIN 500 MG CAP PO (08:34)
[2018-10-05] MEDS: GABAPENTIN 300 MG CAP PO ×2 (08:35→12:50)
[2018-10-05] MEDS: ASPIRIN 81 MG TAB PO (08:35)
[2018-10-05] MEDS: VERAPAMIL (SR) 240 MG TAB PO (08:36)
[2018-10-05] MEDS: LINAGLIPTIN 5 MG TABLET PO (08:37)
[2018-10-05] MEDS: EMPAGLIFLOZIN 10 MG TABLET PO (08:37)
[2018-10-05] MEDS: ISOSORBIDE MONONITRATE(SR)30 MG TAB PO (08:37)
[2018-10-05] MEDS: BISMUTH SUBSALICYLATE 240 ML BTL PO ×2 (08:38→12:51)
[2018-10-05] MEDS: FLUTICASONE/VILANTEROL 100-25 INH (08:38)
[2018-10-05] MEDS: PANTOPRAZOLE (EC) 40 MG TAB PO (08:38)
[2018-10-05] MEDS: METOPROLOL 25 MG TAB PO (08:38)
[2018-10-05] MEDS: BROMOCRIPTINE 2.5 MG TAB PO (08:38)
[2018-10-05] MEDS: ENOXAPARIN 40 MG/0.4 ML SYG SC (08:42)
[2018-10-05] MEDS: INSULIN ASPART [NOVOLOG] 3 ML PEN SC ×2 (08:43→12:51)
[2018-10-05] MEDS: INSULIN GLARGINE [LANTus] (100 UNITS/ML) SYG SC (08:44)
[2018-10-05] MEDS: BETAMETHASONE/CLOTRIMAZOLE 15 GM CR TOP (08:44)
[2018-10-05] MEDS: Insulin NOVOLOG SS MODERATE Algorithm (SS with meals and bedtime) SC ×2 (08:44→12:52)
[2018-10-05] MEDS: LIDOCAINE 5% PATCH TD (10:09)
[2018-10-05] MEDS: TIOTROPIUM 18 MCG CAPSULE INHA DEV INH (10:14)
[2018-10-05] MEDS: CEFTRIAXONE 1 GM/50 ML (PMX) 50 ML IVPB (12:30)
== END 2018-10-05 13:35 | disposition home or self-care (01) | DRG 392 ==
LOC: E/R 21:40 → MS1 10-02 12:25 → 6WM 10-01 03:10
PROVIDERS: Family Medicine
DX: K91.1 Postgastric surgery syndromes (principal); E87.2 Acidosis; Z68.41 Body mass index [BMI] 40.0-44.9, adult; N39.0 Urinary tract infection, site not specified; Y83.8 Other surgical procedures as the cause of abnormal reaction of the patient, or of later complication, without mention of misadventure at the time of the procedure; J44.9 Chronic obstructive pulmonary disease, unspecified; B37.2 Candidiasis of skin and nail; E78.5 Hyperlipidemia, unspecified; I10 Essential (primary) hypertension; E66.01 Morbid (severe) obesity due to excess calories; E11.65 Type 2 diabetes mellitus with hyperglycemia; S32.030D Wedge compression fracture of third lumbar vertebra, subsequent encounter for fracture with routine healing; E55.9 Vitamin D deficiency, unspecified; B96.20 Unspecified Escherichia coli [E. coli] as the cause of diseases classified elsewhere; B96.81 Helicobacter pylori [H. pylori] as the cause of diseases classified elsewhere; E27.9 Disorder of adrenal gland, unspecified; Z91.19 Patient's noncompliance with other medical treatment and regimen
CPT/HCPCS: 36415; 71045; 74177; 80048; 80053; 81001; 82533; 82962; 83036; 83605; 84443; 85025; 86480; 86803; 87040; 87086; 87338; 87340; 96374; 96375; 99285-25

== ENCOUNTER 2018-11-29 18:48 | Emergency (ER) | payer OTHER ==
[2018-11-29 22:19] LABS: ADD MAN DIFF? NO
[2018-11-29 22:23] LABS: BASOPHIL # 0.1 10^3/ul (0.0-0.1); BASOPHILS % 0.8 % (0.0-2.0); EOSINOPHILS # 0.2 10^3/ul (0.0-0.5); EOSINOPHILS % 1.7 % (0.0-7.0); HEMATOCRIT 46.2 % (37.0-47.0); HEMOGLOBIN 14.5 g/dl (12.0-16.0); LYMPHOCYTES # 2.9 10^3/ul (0.8-2.9); LYMPHOCYTES % 27.5 % (15.0-51.0); MEAN CORPUSCULAR HEMOGLOBIN 27.4 pg (29.0-33.0); MEAN CORPUSCULAR HGB CONC 31.4 g/dl (32.0-37.0); MEAN CORPUSCULAR VOLUME 87.2 fl (82.0-101.0); MEAN PLATELET VOLUME 10.1 fl (7.4-10.4); MONOCYTE # 0.9 10^3/ul (0.3-0.9); MONOCYTES % 8.7 % (0.0-11.0); NEUTROPHIL # 6.5 10^3/ul (1.6-7.5); NEUTROPHILS % 60.8 % (39.0-77.0); PLATELET COUNT 418 10^3/UL (140-415); RED CELL DISTRIBUTION WIDTH 14.9 % (11.5-14.5)
[2018-11-29 22:23] LABS: WHITE BLOOD COUNT 10.6 10^3/ul (4.8-10.8)
[2018-11-29 22:39] LABS: ALANINE AMINOTRANSFERASE 32 IU/L (13-69); ALBUMIN 4.1 g/dl (3.3-4.9); ALBUMIN/GLOBULIN RATIO 1.46; ALKALINE PHOSPHATASE 127 IU/L (42-121); ANION GAP 18 (5-13); ASPARTATE AMINO TRANSFERASE 19 IU/L (15-46); BILIRUBIN,INDIRECT 0.2 mg/dl (0-1.1); BILIRUBIN,TOTAL 0.2 mg/dl (0.2-1.3); BLOOD UREA NITROGEN 22 mg/dl (7-20); CALCIUM 9.7 mg/dl (8.4-10.2); CARBON DIOXIDE 23 mmol/L (21-31); CHLORIDE 90 mmol/L (97-110); CREATININE 1.04 mg/dl (0.44-1.00); Estimated GFR 55 mL/min (>60); LIPASE 174 U/L (23-300); POTASSIUM 4.3 mmol/L (3.5-5.1); SODIUM 131 mmol/L (135-144); TOTAL PROTEIN 6.9 g/dl (6.1-8.1)
[2018-11-29 22:40] LABS: INR 0.89; PROTIME 12.2 Sec (11.9-14.9)
[2018-11-29 22:51] LABS: B-TYPE NATRIURETIC PEPTIDE 79 PG/ML (0-125); TROPONIN-I < 0.012 ng/ml (0.000-0.120)
[2018-11-29 22:56] LABS: GLUCOSE 592 mg/dl (70-220)
[2018-11-30] MEDS: SOD CHLORIDE 0.9% 1,000 ML IV ×2 (00:16→01:17)
[2018-11-30] MEDS: INSULIN REGULAR, HUMAN 100 UNIT/1 ML 3ML VIAL IV ×2 (00:19→02:29)
[2018-11-30 00:53] LABS: ADD UMIC NO; UR ASCORBIC ACID NEGATIVE (NEGATIVE); UR BILIRUBIN (Dip) NEGATIVE (NEGATIVE); UR BLOOD (Dip) NEGATIVE (NEGATIVE); UR CLARITY CLEAR (CLEAR); UR COLOR STRAW (YELLOW); UR GLUCOSE (Dip) 3+ mg/dL (NEGATIVE); UR KETONES (Dip) NEGATIVE (NEGATIVE); UR LEUKOCYTE ESTERASE (Dip) NEGATIVE Leu/ul (NEGATIVE); UR NITRITE (Dip) NEGATIVE (NEGATIVE); UR SPECIFIC GRAVITY (Dip) 1.025 (1.003-1.030); UR TOTAL PROTEIN (Dip) NEGATIVE (NEGATIVE); UR UROBILINOGEN (Dip) NEGATIVE (NEGATIVE)
[2018-11-30] MEDS: KETOROLAC 15 MG INJ IV (00:53)
[2018-11-30] MEDS: FENTAnyl 50 MCG/ML VIAL IV (00:54)
== END 2018-11-30 05:25 | disposition home or self-care (01) ==
LOC: E/R 11-30 05:25
DX: R07.9 Chest pain, unspecified (principal); R10.9 Unspecified abdominal pain; F17.210 Nicotine dependence, cigarettes, uncomplicated; D47.3 Essential (hemorrhagic) thrombocythemia; N17.9 Acute kidney failure, unspecified; E87.1 Hypo-osmolality and hyponatremia; R74.8 Abnormal levels of other serum enzymes; R81 Glycosuria; I11.0 Hypertensive heart disease with heart failure; I50.9 Heart failure, unspecified; J44.9 Chronic obstructive pulmonary disease, unspecified; E11.65 Type 2 diabetes mellitus with hyperglycemia; E11.9 Type 2 diabetes mellitus without complications; E66.01 Morbid (severe) obesity due to excess calories; Z79.4 Long term (current) use of insulin; Z79.82 Long term (current) use of aspirin; Z68.41 Body mass index [BMI] 40.0-44.9, adult
CPT/HCPCS: 36415; 71045; 80053; 81003; 82962; 83690; 83880; 84484; 85025; 85610; 93005; 96361; 96374; 96375; 96376; 99285-25

== ENCOUNTER 2019-01-21 16:06 | Emergency (ER) | payer OTHER | END 2019-01-21 17:15 | disposition home or self-care (01) | LOC: E/R 16:06 | DX: R06.02 Shortness of breath (principal); E11.9 Type 2 diabetes mellitus without complications; I50.9 Heart failure, unspecified; I10 Essential (primary) hypertension; J44.9 Chronic obstructive pulmonary disease, unspecified; F17.210 Nicotine dependence, cigarettes, uncomplicated; Z79.4 Long term (current) use of insulin; Z79.82 Long term (current) use of aspirin | CPT/HCPCS: 99282; Z7502 ==

== ENCOUNTER 2019-01-25 20:09 | Inpatient (IN) | payer OTHER ==
[2019-01-26 00:50] LABS: URINE BLOOD (Dip) POC Negative (NEGATIVE); URINE KETONES (Dip) POC Negative (NEGATIVE); URINE LEUKOCYTE EST (Dip) POC Negative (NEGATIVE); URINE NITRITE (Dip) POC Negative (NEGATIVE); URINE TOTAL PROTEIN POC Negative (NEGATIVE)
[2019-01-26 01:19] LABS: ADD MAN DIFF? NO
[2019-01-26 01:20] LABS: BASOPHIL # 0.1 10^3/ul (0.0-0.1); EOSINOPHILS # 0.3 10^3/ul (0.0-0.5); EOSINOPHILS % 2.4 % (0.0-7.0); HEMATOCRIT 44.9 % (37.0-47.0); HEMOGLOBIN 14.4 g/dl (12.0-16.0); LYMPHOCYTES # 3.1 10^3/ul (0.8-2.9); LYMPHOCYTES % 27.5 % (15.0-51.0); MEAN CORPUSCULAR HEMOGLOBIN 26.8 pg (29.0-33.0); MEAN CORPUSCULAR HGB CONC 32.1 g/dl (32.0-37.0); MEAN CORPUSCULAR VOLUME 83.5 fl (82.0-101.0); MEAN PLATELET VOLUME 10.6 fl (7.4-10.4); MONOCYTES % 8.7 % (0.0-11.0); NEUTROPHIL # 6.7 10^3/ul (1.6-7.5); NEUTROPHILS % 59.8 % (39.0-77.0); PLATELET COUNT 354 10^3/UL (140-415); RED BLOOD COUNT 5.38 10^6/ul (4.20-5.40); RED CELL DISTRIBUTION WIDTH 16.1 % (11.5-14.5)
[2019-01-26 01:20] LABS: WHITE BLOOD COUNT 11.2 10^3/ul (4.8-10.8)
[2019-01-26 01:24] LABS: ADD UMIC NO; MODE ROOM AIR; MetHgb Venous 0.1 %; Sample Type Blood venous; Site VENOUS LINE; UR ASCORBIC ACID NEGATIVE (NEGATIVE); UR BILIRUBIN (Dip) NEGATIVE (NEGATIVE); UR BLOOD (Dip) NEGATIVE (NEGATIVE); UR CLARITY CLEAR (CLEAR); UR COLOR STRAW (YELLOW); UR GLUCOSE (Dip) 3+ mg/dL (NEGATIVE); UR KETONES (Dip) TRACE mg/dL (NEGATIVE); UR LEUKOCYTE ESTERASE (Dip) NEGATIVE Leu/ul (NEGATIVE); UR NITRITE (Dip) NEGATIVE (NEGATIVE); UR SPECIFIC GRAVITY (Dip) 1.026 (1.003-1.030); UR TOTAL PROTEIN (Dip) NEGATIVE (NEGATIVE); UR UROBILINOGEN (Dip) NEGATIVE (NEGATIVE); Venous COHb 4.4 %; Venous Fraction OxyHgb 81.4 %; Venous Oxygen Sat 85.2 mmHG (55.0-75.0); Venous Total Hemglobin 15.2 g/dl
[2019-01-26] MEDS: SOD CHLORIDE 0.9% 1,000 ML IV ×3 (01:28→10:56)
[2019-01-26 01:37] LABS: ANION GAP 15 (5-13); BLOOD UREA NITROGEN 23 mg/dl (7-20); CALCIUM 9.6 mg/dl (8.4-10.2); CARBON DIOXIDE 24 mmol/L (21-31); CHLORIDE 89 mmol/L (97-110); CREATININE 1.08 mg/dl (0.44-1.00); Estimated GFR 52 mL/min (>60); MAGNESIUM 1.8 mg/dl (1.7-2.5); PHOSPHORUS 4.7 mg/dl (2.5-4.9); POTASSIUM 4.4 mmol/L (3.5-5.1); SODIUM 128 mmol/L (135-144)
[2019-01-26 01:48] LABS: GLUCOSE 728 mg/dl (70-220)
[2019-01-26] MEDS ORDERED: D10/0.45% NACL + KCL 40 MEQ 1,000 ML IV (01:49)
[2019-01-26] MEDS ORDERED: SOD CHLORIDE 0.9% 1,000 ML IV (01:49)
[2019-01-26] MEDS ORDERED: NS + KCL 40 MEQ 1,000 ML IV (01:49)
[2019-01-26] MEDS ORDERED: DEXTROSE 10 %/0.45 % NACL 1,000 ML IV (01:49)
[2019-01-26] MEDS ORDERED: DEXTROSE 50% 50 ML SYRINGE IV ×4 (02:00→20:00)
[2019-01-26] MEDS ORDERED: ONDANSETRON 4 MG INJ IV (02:30)
[2019-01-26] MEDS ORDERED: ALBUTEROL/IPRATROPIUM (NEB) 3 ML AMP NEB (02:30)
[2019-01-26] MEDS: LACTATED RINGER'S 1,000 ML IV (02:59)
[2019-01-26] MEDS: NS + KCL 30 MEQ 1,000 ML IV (04:02)
[2019-01-26 04:09] LABS: Estimated GFR 60 mL/min (>60)
[2019-01-26] MEDS: INSULIN REGULAR, HUMAN 100 UNIT in SOD CHLORIDE 0.9% 100 ML IV (04:11)
[2019-01-26 04:15] LABS: ANION GAP 14 (5-13); BLOOD UREA NITROGEN 21 mg/dl (7-20); CALCIUM 9.2 mg/dl (8.4-10.2); CARBON DIOXIDE 21 mmol/L (21-31); CHLORIDE 96 mmol/L (97-110); CREATININE 0.96 mg/dl (0.44-1.00); MAGNESIUM 1.9 mg/dl (1.7-2.5); PHOSPHORUS 4.4 mg/dl (2.5-4.9); POTASSIUM 4.3 mmol/L (3.5-5.1); SODIUM 131 mmol/L (135-144)
[2019-01-26 04:18] LABS: GLUCOSE 621 mg/dl (70-220)
[2019-01-26] MEDS: D10/0.45% NACL + KCL 30 MEQ 1,000 ML IV (04:28)
[2019-01-26 04:48] LABS: Allen Test ACCEPTAB; MODE NASAL CANNULA; MetHgb Venous 0.2 %; Sample Type Blood venous; Site VENOUS LINE; Venous Total Hemglobin 14.7 g/dl
[2019-01-26 06:16] LABS: ANION GAP 13 (5-13); BLOOD UREA NITROGEN 20 mg/dl (7-20); CALCIUM 9.9 mg/dl (8.4-10.2); CARBON DIOXIDE 23 mmol/L (21-31); CHLORIDE 98 mmol/L (97-110); CREATININE 0.89 mg/dl (0.44-1.00); Estimated GFR > 60 mL/min (>60); MAGNESIUM 1.7 mg/dl (1.7-2.5); PHOSPHORUS 3.6 mg/dl (2.5-4.9); SODIUM 134 mmol/L (135-144)
[2019-01-26 06:19] LABS: GLUCOSE 513 mg/dl (70-220)
[2019-01-26] MEDS: FAMOTIDINE 20 MG INJ IV (08:40)
[2019-01-26] MEDS: HEPARIN 5,000 UNIT/1 ML VIAL SC (08:44)
[2019-01-26] MEDS: HYDROCODONE/APAP (5/325) TAB PO ×2 (08:55→15:20)
[2019-01-26] MEDS: FUROSEMIDE 20 MG INJ IV (09:58)
[2019-01-26] MEDS ORDERED: ALBUTEROL 0.083% (NEB) 2.5 MG/3 ML AMP NEB (10:00)
[2019-01-26] MEDS: PANTOPRAZOLE (EC) 40 MG TAB PO (10:55)
[2019-01-26] MEDS: ALENDRONATE 70 MG TAB PO (10:55)
[2019-01-26] MEDS: ASPIRIN 81 MG TAB PO (10:55)
[2019-01-26] MEDS: FLUTICASONE/VILANTEROL 200-25 INH DEVICE INH (10:56)
[2019-01-26] MEDS: INSULIN ASPART [NOVOLOG] 3 ML PEN SC ×2 (11:25→17:12)
[2019-01-26] MEDS: INSULIN GLARGINE [LANTus] (100 UNITS/ML) SYG SC (11:47)
[2019-01-26] MEDS: GABAPENTIN 300 MG CAP PO (13:20)
[2019-01-26] MEDS: ACETAMINOPHEN 650MG/20.3ML CUP PO (13:20)
[2019-01-26] MEDS: RIVAROXABAN 20 MG TABLET PO (17:02)
[2019-01-26 19:12] LABS: ANION GAP 10 (5-13); BLOOD UREA NITROGEN 16 mg/dl (7-20); CALCIUM 9.2 mg/dl (8.4-10.2); CARBON DIOXIDE 21 mmol/L (21-31); CHLORIDE 100 mmol/L (97-110); CREATININE 0.89 mg/dl (0.44-1.00); Estimated GFR > 60 mL/min (>60); MAGNESIUM 1.6 mg/dl (1.7-2.5); PHOSPHORUS 3.7 mg/dl (2.5-4.9); POTASSIUM 4.1 mmol/L (3.5-5.1); SODIUM 131 mmol/L (135-144)
[2019-01-26 19:16] LABS: GLUCOSE 464 mg/dl (70-220)
[2019-01-26] MEDS ORDERED: metFORMIN 500 MG TAB PO (19:30)
[2019-01-26] MEDS ORDERED: GLUCOSE GEL 15 GRAM TUBE PO ×2 (20:00)
[2019-01-26] MEDS ORDERED: GLUCOSE GEL 15 GRAM TUBE BUCCAL (20:00)
[2019-01-26] MEDS ORDERED: GLUCAGON 1 MG INJ IM (20:00)
[2019-01-26] MEDS ORDERED: ATORVASTATIN 40 MG TAB PO (21:00)
[2019-01-26] MEDS ORDERED: INSULIN ASPART [NOVOLOG] 3 ML PEN SC ×2 (21:00)
[2019-01-26] MEDS ORDERED: PAROXETINE 20 MG TAB PO (21:00)
[2019-01-27] MEDS ORDERED: ACCU-CHEK XX ×3 (02:00)
[2019-01-27] MEDS ORDERED: INSULIN ASPART [NOVOLOG] 3 ML PEN SC ×2 (07:35)
[2019-01-27] MEDS ORDERED: EMPAGLIFLOZIN 10 MG TABLET PO (08:00)
[2019-01-27] MEDS ORDERED: LINAGLIPTIN 5 MG TABLET PO (09:00)
== END 2019-01-26 20:22 | disposition left against medical advice (07) | DRG 638 ==
LOC: E/R 20:09 → ICU 01-26 05:48
PROVIDERS: Internal Medicine
DX: E11.65 Type 2 diabetes mellitus with hyperglycemia (principal); Z68.42 Body mass index [BMI] 45.0-49.9, adult; G47.00 Insomnia, unspecified; I10 Essential (primary) hypertension; J44.9 Chronic obstructive pulmonary disease, unspecified; E78.5 Hyperlipidemia, unspecified; E66.9 Obesity, unspecified; Z79.82 Long term (current) use of aspirin; Z79.4 Long term (current) use of insulin
CPT/HCPCS: 36415; 71045; 80048; 81003; 82803; 82962; 83036; 83735; 84100; 85025; 87081; 93005; 99285-25